=== PATIENT | male | born 1945 | race Two or more races ===

== ENCOUNTER 2017-04-10 19:29 | Inpatient (IN) | payer MEDICARE, MEDICAID ==
[~2017-04-10] VITALS: Ht 175.3 cm; Wt 72.1 kg
[2017-04-10] MEDS ORDERED: ONDANSETRON HCL/PF 4 MG/2 ML VIAL ONE ×2 (20:19→21:58)
[2017-04-10] MEDS ORDERED: MORPHINE SULFATE INJ 4 MG/ML DISP.SYRIN ONE ×2 (20:20→21:58)
[2017-04-10] MEDS ORDERED: ONDANSETRON HCL/PF - ER 4 MG/2 ML VIAL IV ONE ×2 (20:30→22:00)
[2017-04-10] MEDS ORDERED: MORPHINE SULFATE INJ 2 MG/ML DISP.SYRIN IV ONE ×2 (20:30→22:00)
--- NOTE | 2017-04-10 20:41 | NUR ---
PT TRANSPORTED TO RADIOLOGY FOR CT LUMBAR SPINE.
[2017-04-10 21:24] LABS: APPEARANCE,URINE Slightly Cloudy (CLEAR); BILIRUBIN,URINE Negative (NEGATIVE); BLOOD, URINE Negative Ery/uL (NEGATIVE); COLOR,URINE Dark (YELLOW); KETONES,URINE Negative (NEGATIVE); LEUKOCYTE ESTERASE ,URINE Trace (NEGATIVE); NITRITE, URINE Negative (NEGATIVE); PH,URINE 5.5 (5.0-8.0); PROTEIN,URINE 30 mg/dl (NEGATIVE); UGLUCOSE Negative (NEGATIVE); UROBILINOGEN,URINE 0.2 EU/dL (0.2)
[2017-04-10 21:35] LABS: BACTERIA,URINE Few /HPF (None Seen); RBC,URINE 0-2 /HPF (0-2); SQUAMOUS EPITHELIAL CELL,UR Moderate /HPF (None Seen); URINE AMORPHOUS URATE Few /HPF (None Seen)
[2017-04-10 21:36] LABS: MUCUS,URINE Moderate /LPF (None Seen)
--- NOTE | 2017-04-10 21:41 | NUR ---
ER MD AT BEDSIDE TALKING TO PT REGARDING CT RESULT. PENDING DISPOSITION.
--- NOTE | 2017-04-10 21:50 | NUR ---
OS SAT 88% ON 4L/NC ER MADE UGARTE WITH ORDERS RECEIVED. RT PAGED FOR HHN TX.
--- NOTE | 2017-04-10 21:55 | NUR ---
NOTED PT O2 SAT 86-88%, PT APPEARS ASYMPTOMATIC, PT SCREAMING DEMANDING FOR ORANGE JUICE AND REQUESTING TO BE WHEELED OUT TO SMOKE A CIGARETTE. ER MD AT BEDSIDE TALKING TO PT. PT DOES NOT APPEAR SOB, PT ABLE TO SPEAK IN FULL SENTENCES WITHOUT DIFFICULTY. LUNG SOUNDS DEMINISHED BILATERALLY ON AUSCULTATION.
[2017-04-10] MEDS ORDERED: IPRATROPIUM NEB FS 0.5 MG/2.5 ML AMPUL.NEB NEB ONE ×2 (22:00→23:00)
[2017-04-10] MEDS ORDERED: ALBUTEROL FS 2.5 MG/0.5 ML VIAL.NEB NEB ONE (22:00)
[2017-04-10] MEDS ORDERED: ALBUTEROL FS 2.5 MG/0.5 ML VIAL.NEB ONE ×2 (22:03→22:47)
[2017-04-10] MEDS ORDERED: IPRATROPIUM NEB FS 0.5 MG/2.5 ML AMPUL.NEB ONE ×2 (22:04→22:47)
--- NOTE | 2017-04-10 22:29 | NUR ---
ER MD COLBERT AT [facility] TO RE-EVAL PT.
--- NOTE | 2017-04-10 22:35 | NUR ---
CALLED [facility] FOR TRANSPORT ETA OF 1 HR WAS GIVEN.
[2017-04-10] MEDS ORDERED: ALBUTEROL FS 2.5 MG/3 ML VIAL.NEB NEB ONE (23:00)
--- NOTE | 2017-04-10 23:21 | NUR ---
CALLED [facility] TO CANCEL TRANSPORT, SPOKE WITH LIN.
--- NOTE | 2017-04-10 23:21 | NUR ---
PT O2 SAT REMAINS 86% ON 4L/NC AFTER 2 HHN TX. ER MADE AWARE WITH ORDERS RECEIVED. WILL CARRY OUT ORDERS.
[2017-04-10] MEDS ORDERED: PIPERACILLIN /TAZOBACTAM 3.375 G in IV D5W 50 ML IV ONE (23:30)
[2017-04-10] MEDS ORDERED: DEXAMETHASONE SOD PHOSPHATE 4 MG/ML VIAL IV ONE (23:30)
[2017-04-10] MEDS ORDERED: DEXAMETHASONE SOD PHOSPHATE 10 MG/ML VIAL ONE (23:34)
--- NOTE | 2017-04-10 23:46 | NUR ---
ER MD SPOKE TO TIME STAN DNP REGARDING PT ADMISSION.
[2017-04-11] VITALS (38 sets, daily range): BP systolic 86–130; BP diastolic 39–84
[2017-04-11 00:02] LABS: CALCIUM, SERUM 8.3 mg/dL (8.5-10.1); CARBON DIOXIDE 38 mmol/L (21-32); CHLORIDE 102 mmol/L (98-107); CREATININE 1.1 mg/dL (0.6-1.3); GLUCOSE 163 mg/dL (74-106); POTASSIUM 5.3 mmol/L (3.5-5.1); SODIUM SERUM 142 mmol/L (136-145); UREA NITROGEN, BLOOD 28 mg/dL (7-18)
--- NOTE | 2017-04-11 00:12 | NUR ---
ASSIGNED TELE BED 324-2
--- NOTE | 2017-04-11 00:29 | NUR ---
PT ASLEEP, NO ACUTE DISTRESS NOTED, RESP EVEN AND UNLABORED. CALL LIGHT WITHIN REACH. WILL CONTINUE TO MONITOR PT CLOSELY.
[2017-04-11 00:34] LABS: BASOPHILS # (AUTO) 0.1 /CMM (0.0-0.2); BASOPHILS % (AUTO) 0.3 % (0.0-2.0); EOSINOPHILS # (AUTO) 0.1 /CMM (0.0-0.7); EOSINOPHILS % (AUTO) 0.4 % (0.0-6.0); HEMATOCRIT 52 % (39-51); HEMOGLOBIN 16.5 g/dL (13.5-17.5); LYMPHOCYTES # (AUTO) 3.3 /CMM (0.8-4.8); LYMPHOCYTES % (AUTO) 15.1 % (20.0-44.0); MEAN CORPUSCULAR HEMOGLOBIN 32 PG (26.0-33.0); MEAN CORPUSCULAR HGB CONC 32 g/dl (31.0-36.0); MEAN CORPUSCULAR VOLUME 99 fL (80-96); MONOCYTES # (AUTO) 1.8 /CMM (0.1-1.30); MONOCYTES % (AUTO) 8.3 % (2.0-12.0); NEUTROPHILS # (AUTO) 16.4 /CMM (1.8-8.9); NEUTROPHILS % (AUTO) 75.9 % (43.0-81.0); PLATELET COUNT (AUTO) 184 /CMM (150-450); RED BLOOD CELL COUNT(AUTO) 5.25 MIL/uL (4.5-6.0); WHITE BLOOD COUNT (AUTO) 21.7 K/uL (4.3-11.0)
--- NOTE | 2017-04-11 01:39 | NUR ---
PT TRANSPORTED TO RADIOLOGY FOR CT PULMONARY ANGIOGRAM.
[2017-04-11] MEDS ORDERED: IOHEXOL-350 100 ML VIAL IV ONE (01:51)
[2017-04-11] MEDS ORDERED: IV NS 0.9% 250 ML IV ONE (01:52)
--- NOTE | 2017-04-11 02:51 | NUR ---
ER SPOKE TO NEMO PIERCE DNP REGARDING PT ADMISSION.
--- NOTE | 2017-04-11 02:53 | NUR ---
RECEIVED REPORT FROM ER REGARDING PENDING ADMISSION, AWAITING ARRIVAL IN UNIT
--- NOTE | 2017-04-11 03:00 | NUR ---
REPORT CALLED TO PROTECTION ENGINEERRANJITH GARCIA. WILL TRANSPORT PT VIA ACLS PROTOCOL.
[2017-04-11] MEDS ORDERED: IV NS 0.9% 1,000 ML IV PRN ×2 (03:04→06:15)
[2017-04-11 03:17] LABS: BAND % (MANUAL) 1 % (0.0-5.0); EOSINOPHILS % (MANUAL) 2 % (0-4); LYMPHOCYTES % (MANUAL) 20 % (16-48); MONOCYTES % (MANUAL) 9 % (0-11.0); NEUTROPHILS % (MANUAL) 68 (42-76)
--- NOTE | 2017-04-11 03:21 | NUR ---
RT AT [facility] PT ON BIPAP 15/5, RATE-14, FIO2-100%.
[2017-04-11] MEDS ORDERED: ENOXAPARIN SODIUM 40 MG/0.4 ML DISP.SYRIN SQ SCH ×2 (03:30→09:00)
[2017-04-11] MEDS ORDERED: AZITHROMYCIN 250 MG TABLET PO ONE ×2 (03:30→08:00)
[2017-04-11] MEDS ORDERED: IPRATROPIUM NEB FS 0.5 MG/2.5 ML AMPUL.NEB NEB SCH (03:30)
[2017-04-11] MEDS ORDERED: ALBUTEROL FS 2.5 MG/0.5 ML VIAL.NEB NEB SCH (03:30)
[2017-04-11] MEDS ORDERED: MORPHINE SULFATE INJ 2 MG/ML DISP.SYRIN IV PRN ×2 (03:30→06:15)
[2017-04-11] MEDS ORDERED: CEFTRIAXONE 1 G in IV D5W 50 ML IV SCH ×2 (03:30→09:00)
[2017-04-11] MEDS ORDERED: ONDANSETRON HCL/PF 4 MG/2 ML VIAL IVP PRN ×2 (03:30→06:15)
[2017-04-11] MEDS ORDERED: AZITHROMYCIN 250 MG TABLET PO SCH (03:30)
[2017-04-11] MEDS ORDERED: ALBUTEROL FS 2.5 MG/3 ML VIAL.NEB NEB SCH (03:30)
[2017-04-11] MEDS ORDERED: Z GUARD REMEDY 2 OZ OINT TP PRN ×2 (03:30→06:15)
[2017-04-11] MEDS ORDERED: ZOLPIDEM TARTRATE 5 MG TABLET PO PRN ×2 (03:30→06:15)
[2017-04-11] MEDS ORDERED: ACETAMINOPHEN 325 MG TABLET PO PRN (03:30)
--- NOTE | 2017-04-11 03:37 | NUR ---
BIPAP SETTINGS CHANGED TO 25/5, RATE-14, FIO2-50% BY RT BURAK PER ER MD ORDER.
--- NOTE | 2017-04-11 03:37 | NUR ---
Nithin ordoñez in EDM - 04/11/17 at 0338 by NEGRITA BIPAP SETTINGS CHANGED TO 25/5, RATE-14, FIO2-50%.
[2017-04-11 03:54] LABS: ABG BASE EXCESS 4.4 mmol/L; ABG OXYGEN SATURATION 95.3 % (92.0-98.5); ABG PH 7.043 (7.350-7.450); ABG PO2 100.2 mmHg (75.0-100.0); AaDO2 454.8 mmHg; COHb 5.7 % (0.5-1.5); MetHb 0.5 % (0.0-1.5); O2Hb 89.4 % (94.0-97.0); PEEP,BG 5 cm H2O; SITE, ABG Right Radial; VENT MODE, BG S/T 14 15/5 100%
--- NOTE | 2017-04-11 04:10 | NUR ---
SUZANNE ERNANDEZ AT BEDSIDE TO RE-EVAL PT. PT TOLERATING CURRENT BIPAP SETTINGS AT THIS TIME.
[2017-04-11 04:58] LABS: ABG BASE EXCESS 2.3 mmol/L; ABG OXYGEN SATURATION 90.7 % (92.0-98.5); ABG PCO2 118.6 mmHg (35.0-45.0); ABG PO2 72.2 mmHg (75.0-100.0); AaDO2 150.9 mmHg; COHb 5.3 % (0.5-1.5); MetHb 0.4 % (0.0-1.5); O2Hb 85.5 % (94.0-97.0); PEEP,BG 5 cm H2O; SITE, ABG Right Brachial; VENT MODE, BG S/T 14 25/5 50%
--- NOTE | 2017-04-11 05:01 | NUR ---
REPEAT VBG RESULT RECEIVED BY SUZANNE ERNANDEZ.
--- NOTE | 2017-04-11 05:07 | NUR ---
ER MD ORDER TO PREP PT FOR INTUBATION. RT AT [facility] FOR INTUBATION.
--- NOTE | 2017-04-11 05:13 | NUR ---
ER MD CANCEL INTUBATION. PT BECAME RESPONSIVE, PT REMAINS ON BIPAP AT THIS TIME.
--- NOTE | 2017-04-11 05:15 | NUR ---
ER SPOKE TO NEMO PIERCE DNP REGARDING PT ADMISSION.
--- NOTE | 2017-04-11 05:24 | NUR ---
REPORT CALLED TO WATER POLLUTION CONTROL INSPECTORRANJITH GOMEZ. WILL TRANSPORT PT VIA ACLS PROTOCOL.
--- NOTE | 2017-04-11 06:49 | NUR ---
MOTOR COACH BUS DRIVER. ADMISSION. RECEIVED THE PT FROM ER VIA PositiveID. PT AWAKE, ALERT. FOLLOW COMMANDS. OIL RIG ROUGHNECK SHOWING NSR. IV RT AND LT HAND 18G. IVF NS 75ML/H. BIPAP ON SETTINGS 25/5,RATE 14,FIO2 50%. SAT 97%.OIL RIG ROUGHNECK SHOWING S TACH. PT IS LETHARGIC. HOB ELEVATED, THEODORE GROIN RASHES THEODORE LOWER EXTREMITY REDNESS. WILL CONTINUE TO MONITOR VITALS.
[2017-04-11] MEDS ORDERED: PANTOPRAZOLE 40 MG TABLET.DR PO SCH ×2 (07:30)
[2017-04-11] MEDS: IPRATROPIUM NEB FS 0.5 MG/2.5 ML AMPUL.NEB NEB SCH ×5 (07:35→23:31)
[2017-04-11] MEDS: ALBUTEROL FS 2.5 MG/0.5 ML VIAL.NEB NEB SCH ×5 (07:35→23:31)
--- NOTE | 2017-04-11 07:41 | NUR ---
INITIAL MATHEMATICS PROFESSOR NOTE RCVD PT ON BIPAP TOLERATING WELL, AROUSED TO PAINFUL STIMULI, APPEARS LETHARGIC. SR ON TELE. VITAL SIGNS STABLE. IV SITES C/D/I/PATENT. NO S/O INFILTRATION/PHLEBITIS OBSERVED UPON FLUSHING. IVF INFUSING. WILL CONTINUE TO MONITOR FOR SAFETY AND COMFORT. CALL LIGHT WITHIN REACH. BED IN LOW AND LOCKED POSITION.
[2017-04-11] MEDS: methylPREDNISolone SOD SUCC 125 MG/2ML VIAL IV SCH ×3 (08:26→16:52)
[2017-04-11] MEDS ORDERED: methylPREDNISolone SOD SUCC 125 MG/2ML VIAL IV SCH (09:00)
--- NOTE | 2017-04-11 09:07 | NUR ---
TOBACCO PRIMER MACHINE OPERATOR NOTE PT BECAME COMBATIVE, RESTLESS, ATTEMPTING TO GET OUT OF BED. PT ALERT TO NAME, VERY CONFUSED, UNABLE TO RE-ORIENT. NOT FOLLOWING INSTRUCTIONS/COMMANDS. BILATERAL SOFT WRIST RESTRAINTS ORDERED. DR. ABREU AT BEDSIDE. PT CONTINUES TO BE RESTLESS. PT TO BE INTUBATED. WILL F/U.
[2017-04-11 09:46] LABS: BASOPHILS % (AUTO) 0.1 % (0.0-2.0); HEMATOCRIT 51 % (39-51); HEMOGLOBIN 16.1 g/dL (13.5-17.5); LYMPHOCYTES % (AUTO) 4.2 % (20.0-44.0); MEAN CORPUSCULAR HEMOGLOBIN 31 PG (26.0-33.0); MEAN CORPUSCULAR HGB CONC 32 g/dl (31.0-36.0); MEAN CORPUSCULAR VOLUME 100 fL (80-96); MONOCYTES # (AUTO) 1.1 /CMM (0.1-1.30); MONOCYTES % (AUTO) 4.5 % (2.0-12.0); NEUTROPHILS # (AUTO) 22.1 /CMM (1.8-8.9); NEUTROPHILS % (AUTO) 91.2 % (43.0-81.0); PLATELET COUNT (AUTO) 170 /CMM (150-450); RDW COEFFICIENT OF VARIATION 20.1 (11.5-15.0); RED BLOOD CELL COUNT(AUTO) 5.13 MIL/uL (4.5-6.0); WHITE BLOOD COUNT (AUTO) 24.3 K/uL (4.3-11.0)
[2017-04-11 10:00] LABS: CALCIUM, SERUM 8.6 mg/dL (8.5-10.1); CARBON DIOXIDE 37 mmol/L (21-32); CHLORIDE 102 mmol/L (98-107); CREATININE 1.4 mg/dL (0.6-1.3); GLUCOSE 171 mg/dL (74-106); MAGNESIUM 2.4 mg/dL (1.8-2.4); PHOSPHORUS 7.2 mg/dL (2.5-4.9); POTASSIUM 5.9 mmol/L (3.5-5.1); SODIUM SERUM 140 mmol/L (136-145); UREA NITROGEN, BLOOD 36 mg/dL (7-18)
[2017-04-11 10:32] LABS: ABG BASE EXCESS 2.3 mmol/L; ABG OXYGEN SATURATION 98.1 % (92.0-98.5); ABG PCO2 53.5 mmHg (35.0-45.0); ABG PH 7.354 (7.350-7.450); ABG PO2 130.8 mmHg (75.0-100.0); AaDO2 528.7 mmHg; COHb 2.8 % (0.5-1.5); MetHb 0.7 % (0.0-1.5); O2Hb 94.7 % (94.0-97.0); PEEP,BG 5 cm H2O; SITE, ABG Right Radial; VT, ABG 550 mL
[2017-04-11] MEDS ORDERED: SUCCINYLCHOLINE CHLORIDE 20 MG/ML VIAL IV ONE (11:01)
[2017-04-11] MEDS ORDERED: ETOMIDATE 2 MG/ML VIAL IV ONE (11:01)
[2017-04-11] MEDS ORDERED: FUROSEMIDE 40 MG/4 ML VIAL IV SCH (11:30)
[2017-04-11] MEDS ORDERED: HEPARIN SODIUM, PORCINE 5000 UNITS/1 ML VIAL SQ SCH (12:00)
[2017-04-11] MEDS ORDERED: SODIUM POLYSTYRENE SULFONATE 15 G/60 ML BOTTLE PO ONE (12:00)
[2017-04-11] MEDS ORDERED: BUMETANIDE INJ 8 MG in IV D5W 48 ML IV ONE (12:00)
--- NOTE | 2017-04-11 12:05 | NUR ---
DRY MIXER NOTE PT'S FRIEND CAME TO VISIT, STATES THAT PT HAS NO FAMILY AND HE IS THE ONLY FRIEND THE PT HAS. TORIN RING SPOKE WITH PT'S FRIEND, LIMITED INFORMATION SHARED WITH FRIEND.
[2017-04-11] MEDS: PROPOFOL 100 ML IV PRN ×4 (12:06→22:26)
[2017-04-11 14:35] LABS: APPEARANCE,URINE CLOUDY (CLEAR); BILIRUBIN,URINE NEGATIVE (NEGATIVE); BLOOD, URINE TRACE-INTA Ery/uL (NEGATIVE); COLOR,URINE YELLOW (YELLOW); KETONES,URINE NEGATIVE (NEGATIVE); LEUKOCYTE ESTERASE ,URINE NEGATIVE (NEGATIVE); NITRITE, URINE NEGATIVE (NEGATIVE); PH,URINE 5.5 (5.0-8.0); PROTEIN,URINE TRACE mg/dl (NEGATIVE); UGLUCOSE NEGATIVE (NEGATIVE); UROBILINOGEN,URINE 0.2 EU/dL (0.2)
[2017-04-11 14:54] LABS: CREATININE, URINE 144.1 MG/DL (30.0-125.0); URINE TOTAL PROTEIN 56.9 mg/dL (0-11.9)
[2017-04-11 14:57] LABS: BACTERIA,URINE None seen /HPF (None Seen); RBC,URINE 0-2 /HPF (0-2); SQUAMOUS EPITHELIAL CELL,UR Rare /HPF (None Seen); URINE AMORPHOUS URATE Many /HPF (None Seen); WBC,URINE 0-2 /HPF (0-3)
[2017-04-11] MEDS ORDERED: FEE PK DOSING 1 MIN EA MC ONE (15:38)
[2017-04-11 15:56] LABS: EOSINOPHIL,URINE None Seen
[2017-04-11] MEDS ORDERED: VANCOMYCIN 1 GM in IV D5W 250 ML IV SCH (16:00)
[2017-04-11] MEDS: VANCOMYCIN 1 GM in IV D5W 250 ML IV SCH (16:50)
[2017-04-11] MEDS: PIPERACILLIN /TAZOBACTAM 3.375 G in IV D5W 50 ML IV SCH (18:36)
--- NOTE | 2017-04-11 18:49 | NUR ---
COURIER NOTE PT REMAINS STABLE, INTUBATED, SEDATED, SHOWING NO S/O DISTRESS/PAIN. TOLERATING ORDERED VENT SETTINGS. OG TUBE IN PLACE, MUELLER DRAINING PALE, YELLOW URINE. IV SITES C/D/I/PATENT. NO S/O INFILTRATION/PHLEBITIS OBSERVED. PT'S CARE WILL BE ENDORSED TO AUTOMATIC PATTERN EDGER RN FOR CONTINUITY OF CARE.
--- NOTE | 2017-04-11 20:00 | NUR ---
QUARRYING MANAGER NOTES RECEIVED PT IN BED, SEDATED. TELE READS SR AT THIS TIME WITH EPISODES OF 2ND AND 3RD DEGREE HEART BLOCK. ON VENT VIA 7.5 ETT, 25 CM AT LIP, AC 14, TV 500, FIO2 80%, PEEP 5, TINA WELL. MUELLER CATH IN PLACE, DRAINING WELL. TOMMY PICC AND RW 20G IV, RUNNING DIPRIVAN AT 50 MCG/KG/MIN AND BUMEX. NGT IN PLACE, CLAMPED. NO S/S OF ACUTE DISTRESS. PT TURNED AND REPOSITIONED. HOB ELEVATED, SIDE RAILS X3. BILATERAL RESTRAINTS IN PLACE FOR PT SAFETY.
[2017-04-11] MEDS: HEPARIN SODIUM, PORCINE 5000 UNITS/1 ML VIAL SQ SCH (21:03)
[2017-04-12] VITALS (56 sets, daily range): BP systolic 93–141; BP diastolic 43–95
[2017-04-12] MEDS: PIPERACILLIN /TAZOBACTAM 3.375 G in IV D5W 50 ML IV SCH ×4 (00:55→17:50)
[2017-04-12] MEDS: PROPOFOL 100 ML IV PRN ×6 (02:04→22:29)
[2017-04-12] MEDS: ALBUTEROL FS 2.5 MG/0.5 ML VIAL.NEB NEB SCH ×6 (02:59→22:49)
[2017-04-12] MEDS: IPRATROPIUM NEB FS 0.5 MG/2.5 ML AMPUL.NEB NEB SCH ×6 (03:00→22:49)
[2017-04-12] MEDS: VANCOMYCIN 1 GM in IV D5W 250 ML IV SCH ×2 (04:05→16:32)
[2017-04-12 04:58] LABS: HEMATOCRIT 45 % (39-51); HEMOGLOBIN 14.5 g/dL (13.5-17.5); LYMPHOCYTES # (AUTO) 1.6 /CMM (0.8-4.8); LYMPHOCYTES % (AUTO) 6.7 % (20.0-44.0); MEAN CORPUSCULAR HEMOGLOBIN 31 PG (26.0-33.0); MEAN CORPUSCULAR HGB CONC 32 g/dl (31.0-36.0); MEAN CORPUSCULAR VOLUME 97 fL (80-96); MONOCYTES # (AUTO) 1.2 /CMM (0.1-1.30); MONOCYTES % (AUTO) 5.1 % (2.0-12.0); NEUTROPHILS # (AUTO) 21.2 /CMM (1.8-8.9); NEUTROPHILS % (AUTO) 88.2 % (43.0-81.0); PLATELET COUNT (AUTO) 187 /CMM (150-450); RED BLOOD CELL COUNT(AUTO) 4.62 MIL/uL (4.5-6.0); WHITE BLOOD COUNT (AUTO) 24.1 K/uL (4.3-11.0)
[2017-04-12 05:13] LABS: ALANINE AMINOTRANSFERASE 36 U/L (12-78); ALBUMIN 2.5 g/dL (3.4-5.0); ALKALINE PHOSPHATASE 100 U/L (46-116); ASPARTATE AMINOTRANSFERASE 15 U/L (15-37); BILIRUBIN,TOTAL 0.5 mg/dL (0.2-1.0); CALCIUM, SERUM 7.5 mg/dL (8.5-10.1); CHLORIDE 102 mmol/L (98-107); CREATININE 1.3 mg/dL (0.6-1.3); GLUCOSE 153 mg/dL (74-106); MAGNESIUM 1.9 mg/dL (1.8-2.4); PHOSPHORUS 4.8 mg/dL (2.5-4.9); POTASSIUM 3.2 mmol/L (3.5-5.1); SODIUM SERUM 148 mmol/L (136-145); TOTAL PROTEIN, SERUM 5.8 g/dL (6.4-8.2); UREA NITROGEN, BLOOD 33 mg/dL (7-18)
[2017-04-12 05:24] LABS: CARBON DIOXIDE 42 mmol/L (21-32)
[2017-04-12 05:27] LABS: CHOLESTEROL 120 mg/dL (<200); CREATINE KINASE, TOTAL 31 U/L (39-308); HDL CHOLESTEROL 30 mg/dL (40-60); LDL 79 mg/dL (0-99); THYROID STIMULATING HORMONE 0.434 uIU/mL (0.358-3.74); TRIGLYCERIDES 83 mg/dL (30-150)
--- NOTE | 2017-04-12 07:35 | NUR ---
ADVERTISING EDITOR RECEIVED PATIENT FROM THE PREVIOUS SHIFT. PATIENT IS IN BED. SEDATED ON DIPRIVAN 50 MCG/KG/MIN. ORALLY INTUBATED. VENT SETTINGS REVIEWED AND VERIFIED. STABLE VITAL SINGS. SINUS RHYTHM ON MONITOR. AFEBRILE. MUELLER DRAINING URINE TO GRAVITY. TURNED AND REPOSITIONED FOR COMFORT AND WOUND PREVENTION. WILL CONTINUE TO MONITOR AND PROVIDE CARE.
[2017-04-12 07:47] LABS: BAND % (MANUAL) 1 % (0.0-5.0); LYMPHOCYTES % (MANUAL) 7 % (16-48); MONOCYTES % (MANUAL) 5 % (0-11.0); NEUTROPHILS % (MANUAL) 87 (42-76)
[2017-04-12 07:56] LABS: ABG BASE EXCESS 11.5 mmol/L; ABG OXYGEN SATURATION 91.7 % (92.0-98.5); ABG PCO2 64.3 mmHg (35.0-45.0); ABG PH 7.403 (7.350-7.450); AaDO2 218.2 mmHg; COHb 0.8 % (0.5-1.5); MetHb 0.7 % (0.0-1.5); O2Hb 90.3 % (94.0-97.0); SITE, ABG Right Radial
[2017-04-12] MEDS ORDERED: DEXTROSE 50%-WATER 50 ML DISP.SYRIN IV PRN (08:00)
[2017-04-12] MEDS: POTASSIUM CHLORIDE 20 MEQ POWDER PACKET NG SCH ×3 (08:30→09:30)
--- NOTE | 2017-04-12 08:43 | NUR ---
RT PATIENT REC'D ORALLY INTUBATED ON [facility] VENT WITH SETTINGS SET BY . VENT ALARMS CHECKED + AUDIBLE. VENT PLUGGED INTO RED OUTLET. ETT IN GOOD POSITION ACCORDING TO CHEST X-RAY. PATIENT SUCTIONED WITH MOD AMT THIN SECRETIONS. AMBU BAG AT [facility]. B/S COARSE. CONT CURRENT PLAN OF RESP CARE. Addendum: 04/12/17 at 1132 by TOLU ISAAC RT Amended: Links added.
[2017-04-12] MEDS: methylPREDNISolone SOD SUCC 125 MG/2ML VIAL IV SCH ×3 (08:57→16:32)
[2017-04-12] MEDS: AZITHROMYCIN 250 MG TABLET PO SCH (08:58)
[2017-04-12] MEDS: FAMOTIDINE/PF INJ 20 MG/2 ML VIAL IV SCH ×2 (08:58→21:10)
[2017-04-12] MEDS: HEPARIN SODIUM, PORCINE 5000 UNITS/1 ML VIAL SQ SCH ×2 (08:59→21:12)
--- NOTE | 2017-04-12 09:35 | NUR ---
ROLL FORMING SUPERVISOR DURING 20 MINUTE SEDATION VACATION, RN TURNED OFF THE PROPOFOL GTT. PATIENT NOTED TO BE TACHYPNEIC AND ATTEMPTING TO OPEN EYES. NO PURPOSEFUL MOVEMENT. RN RESEDATED THE PATIENT DUE TO HIGH RISK FOR RESPIRATORY COMPROMISE. PATIENT NOTED TO TAKE IN LOW TIDAL VOLUMES. WILL CONTINUE TO MONITOR.
[2017-04-12] MEDS: Z GUARD REMEDY 2 OZ OINT TP SCH (11:14)
[2017-04-12] MEDS ORDERED: POTASSIUM CHLORIDE 20 MEQ POWDER PACKET GT ONE ×2 (11:30→12:00)
[2017-04-12] MEDS: BLOOD SUGAR DIAGNOSTIC 1 EACH STRIP IN SCH ×2 (11:54→17:40)
[2017-04-12] MEDS: FUROSEMIDE 40 MG/4 ML VIAL IV SCH ×3 (11:54→21:10)
--- NOTE | 2017-04-12 12:13 | NUR ---
WOUND CARE CONSULT: PT PRESENTS WITH SKIN TEAR TO LEFT LOWER LEG, PRESENT ON ADMISSION. RESOLVING EDEMA NOTED TO LOWER LEGS. RECOMMENDATIONS MADE FOR WOUND CARE AND SKIN PROTECTION. DISCUSSED WITH NURSING STAFF. WILL SEE PRN. PT TO BE PLACED ON FIRST STEP MATTRESS. ALL SKIN PROTECTION MEASURES IN PLACE. MD IN AGREEMENT WITH PLAN OF CARE. Addendum: 04/12/17 at 1214 by MEHRDAD LAROSE WNDNU Amended: Links added.
[2017-04-12] MEDS: HYDROGEL DRESSING 90 GM TUBE TP SCH (13:44)
[2017-04-12] MEDS: INSULIN REGULAR, HUMAN 100 UNIT/ML 3 ML VIAL SQ PRN (17:43)
[2017-04-12] MEDS ORDERED: TUBERCULIN,PURIF.PROT.DERIV. 5 TU/0.1 ML VIAL ID ONE (18:00)
--- NOTE | 2017-04-12 19:30 | NUR ---
PATIENT OFFICE REP INITIAL NOTE RECEIVED REPORT FROM TYRESE. PT IN BED, INTUBATED AND SEATED. LUNG SOUNDS DIMINISHED. BOWEL SOUNDS PRESENT. MUELLER PATENT AND INTACT. PULSES PRESENT. IV PATENT AND INTACT. REPOSITIONED FOR COMFORT. BED IN LOW LOCKED POSITION. WILL CONTINUE TO MONITOR.
--- NOTE | 2017-04-12 20:40 | NUR ---
PT RECEIVED INTUBATED ON VENT WITH 7.5 ETT SECURED AT 25CM AT THE LIP. PT TOLERATING VENT SETTINGS. SX'D FOR MOD AMT OF THICK YELLOW SECRETIONS. VENT ALARMS SET AND AUDIBLE. AMBU BAG AT BEDSIDE. VENT PLUGGED INTO RED OUTLET. WILL CONTINUE TO MONITOR. Addendum: 04/12/17 at 2041 by LAURIE DENIS RT Amended: Links added.
[2017-04-13] VITALS (55 sets, daily range): BP systolic 98–144; BP diastolic 39–100
[2017-04-13] MEDS: PIPERACILLIN /TAZOBACTAM 3.375 G in IV D5W 50 ML IV SCH ×4 (00:45→16:53)
[2017-04-13] MEDS: BLOOD SUGAR DIAGNOSTIC 1 EACH STRIP IN SCH ×5 (00:46→23:26)
[2017-04-13] MEDS: INSULIN REGULAR, HUMAN 100 UNIT/ML 3 ML VIAL SQ PRN ×3 (01:02→23:27)
[2017-04-13] MEDS: PROPOFOL 100 ML IV PRN ×3 (01:25→05:41)
[2017-04-13] MEDS: ALBUTEROL FS 2.5 MG/0.5 ML VIAL.NEB NEB SCH ×6 (03:17→22:54)
[2017-04-13] MEDS: IPRATROPIUM NEB FS 0.5 MG/2.5 ML AMPUL.NEB NEB SCH ×6 (03:17→22:54)
[2017-04-13] MEDS: VANCOMYCIN 1 GM in IV D5W 250 ML IV SCH ×2 (03:30→16:53)
[2017-04-13 04:38] LABS: CALCIUM, SERUM 7.6 mg/dL (8.5-10.1); CHLORIDE 99 mmol/L (98-107); CREATININE 1.1 mg/dL (0.6-1.3); GLUCOSE 169 mg/dL (74-106); SODIUM SERUM 147 mmol/L (136-145); UREA NITROGEN, BLOOD 31 mg/dL (7-18)
[2017-04-13 04:57] LABS: CARBON DIOXIDE 48 mmol/L (21-32); POTASSIUM 2.4 mmol/L (3.5-5.1)
[2017-04-13] MEDS: IV NS 0.9% 500 ML BAG IV PRN (05:40)
[2017-04-13] MEDS: IV NS 0.9% 250 ML IV PRN (05:41)
--- NOTE | 2017-04-13 05:48 | NUR ---
INGOT STRIPPER DR ROJAS CALLED WITH CRITICAL VALUES. NEW ORDERS RECEIVED, WILL CARRY OUT.
[2017-04-13] MEDS ORDERED: POTASSIUM CHLORIDE 20 MEQ POWDER PACKET GT ONE (06:00)
[2017-04-13] MEDS ORDERED: POTASSIUM CHLORIDE 20 MEQ POWDER PACKET ONE (06:08)
[2017-04-13] MEDS: POTASSIUM CHLORIDE 20 MEQ POWDER PACKET NG SCH ×2 (06:18→06:49)
--- NOTE | 2017-04-13 07:37 | NUR ---
ASE MASTER MECHANIC RECEIVED PATIENT FROM THE PREVIOUS SHIFT. PATIENT IS IN BED. RESTING COMFORTABLY. NO ACUTE DISTRESS NOTED. AFEBRILE. URINE DRAINING TO GRAVITY. TURNED AND REPOSITIONED FOR COMFORT AND WOUND PREVENTION. WILL CONTINUE TO MONITOR AND PROVIDE CARE.
[2017-04-13] MEDS ORDERED: DC PROPOFOL WHEN EXTUBATED XX PRN ×2 (08:00→10:30)
--- NOTE | 2017-04-13 08:45 | NUR ---
RT PLACED PT ON SIMV TRIALS WITH FOLLOW SETTINGS: SIMV RR 4, VT 500, PEEP +5, PSV 12 PER MD ORDER. WILL CONTINUE TO MONITOR THE PATIENT CLOSELY FOR ANY CHANGE OF CONDITION. NO SIGNS OF DISTRESS AT THIS TIME. RN NOTIFIED AND AWARE. Addendum: 04/13/17 at 0900 by JAMES RODRIGUES RT Amended: Links added.
[2017-04-13] MEDS: methylPREDNISolone SOD SUCC 125 MG/2ML VIAL IV SCH ×3 (08:50→16:53)
[2017-04-13] MEDS: HEPARIN SODIUM, PORCINE 5000 UNITS/1 ML VIAL SQ SCH ×2 (08:50→20:19)
[2017-04-13] MEDS: AZITHROMYCIN 250 MG TABLET PO SCH (08:50)
[2017-04-13] MEDS: FAMOTIDINE/PF INJ 20 MG/2 ML VIAL IV SCH ×2 (08:50→20:19)
[2017-04-13] MEDS: Z GUARD REMEDY 2 OZ OINT TP SCH (08:51)
[2017-04-13] MEDS: HYDROGEL DRESSING 90 GM TUBE TP SCH (08:51)
[2017-04-13 08:57] LABS: EOSINOPHILS # (AUTO) 0.1 /CMM (0.0-0.7); EOSINOPHILS % (AUTO) 0.6 % (0.0-6.0); HEMATOCRIT 47 % (39-51); LYMPHOCYTES # (AUTO) 1.6 /CMM (0.8-4.8); LYMPHOCYTES % (AUTO) 7.2 % (20.0-44.0); MEAN CORPUSCULAR HEMOGLOBIN 31 PG (26.0-33.0); MEAN CORPUSCULAR HGB CONC 32 g/dl (31.0-36.0); MEAN CORPUSCULAR VOLUME 97 fL (80-96); MONOCYTES # (AUTO) 0.8 /CMM (0.1-1.30); MONOCYTES % (AUTO) 3.7 % (2.0-12.0); NEUTROPHILS # (AUTO) 19.6 /CMM (1.8-8.9); NEUTROPHILS % (AUTO) 88.5 % (43.0-81.0); PLATELET COUNT (AUTO) 203 /CMM (150-450); RDW COEFFICIENT OF VARIATION 19.8 (11.5-15.0); RED BLOOD CELL COUNT(AUTO) 4.85 MIL/uL (4.5-6.0); WHITE BLOOD COUNT (AUTO) 22.2 K/uL (4.3-11.0)
[2017-04-13] MEDS ORDERED: POTASSIUM CHLORIDE 20 MEQ POWDER PACKET NG SCH (09:30)
[2017-04-13 10:03] LABS: BAND % (MANUAL) 1 % (0.0-5.0); LYMPHOCYTES % (MANUAL) 8 % (16-48); MONOCYTES % (MANUAL) 2 % (0-11.0); NEUTROPHILS % (MANUAL) 89 (42-76)
[2017-04-13 10:16] LABS: ABG OXYGEN SATURATION 94.8 % (92.0-98.5); ABG PCO2 65.3 mmHg (35.0-45.0); ABG PH 7.437 (7.350-7.450); ABG PO2 80.7 mmHg (75.0-100.0); AaDO2 275.3 mmHg; COHb 0.8 % (0.5-1.5); MetHb 0.7 % (0.0-1.5); O2Hb 93.4 % (94.0-97.0); PEEP,BG 5 cm H2O; SITE, ABG Right Brachial; VT, ABG 500 mL
--- NOTE | 2017-04-13 10:22 | NUR ---
RT POST ABG RESULTS SHOWN TO DR. ABREU. PT EXTUBATED PER MD ORDER. RN AT BEDSIDE. PLACED PT ON 5 LPM VIA N/C. SpO2 95%, HR 94. PT IS AWAKE AND VERBALLY RESPONSIVE. WILL CONTINUE TO MONITOR FOR ANY CHANGE OF CONDITION.
[2017-04-13] MEDS: ACETYLCYSTEINE 10% SOLN 400 MG/4 ML VIAL NEB SCH ×3 (11:07→22:54)
[2017-04-13 12:14] LABS: *SPE A/G RATIO 1.1 (0.7-1.7); *SPE ALBUMIN 2.8 g/dL (2.9-4.4); *SPE ALPHA-1-GLOBULIN 0.2 g/dL (0.0-0.4); *SPE ALPHA-2-GLOBULIN 0.6 g/dL (0.4-1.0); *SPE BETA GLOBULIN 0.9 g/dL (0.7-1.3); *SPE GLOBULIN, TOTAL 2.5 g/dL (2.2-3.9); *SPE M-SPIKE Not Observed g/dL (Not Observed); *SPE PROTEIN TOTAL 5.3 g/dL (6.0-8.5); *SPEGAMMA GLOBULIN 0.8 g/dL (0.4-1.8)
--- NOTE | 2017-04-13 12:30 | NUR ---
RT PATIENT IS ALERT AND VERBALLY RESPONSIVE. ABG RESULTS POST 1 H[address] EXTUBATION SHOWN TO DR. ABREU. PLACE PT ON VENTI MASK WITH 50% FiO2 PER MD ORDER. PATIENT REFUSED MASK 3 TIMES. PT BECAME COMBATIVE AND STATES WANTING TO BE LEFT ALONE. PATIENT IS CURRENTLY ON 6LPM VIA N/C. RN AWARE AND AT BEDSIDE. NO SIGNS OF RESPIRATORY DISTRESS NOTED AT THIS TIME. WILL CONTINUE TO MONITOR THE PATIENT CLOSELY FOR ANY CHANGES.
--- NOTE | 2017-04-13 13:24 | NUR ---
PHILOSOPHY SPECIALIST PATIENT IS ALERT AND ORIENTED X 4. ABLE TO MAKE DECISIONS FOR HIMSELF. HAY FARMER AWARE OF PATIENT'S RECENT BLOOD GAS. HAY FARMER RECOMMENDED TO PLACE PATIENT ON VENTI MASK AT 50% FIO2. PATIENT REFUSED THE MASK X 3. PATIENT NOTED TO BE AGGRESSIVE AND COMBATIVE WHEN APPROACHED. PATIENT IS CURRENTLY ON 6L NC WITH HUMIDIFICATION. SATURATING BETWEEN 88% -91%. WHEAT FARMER MADE AWARE OF PATIENT'S RECENT EKG CHANGES. WHEAT FARMER MADE AWARE ABOUT PATIENT'S CURRENT NON-COMPLIANCE AND COMBATIVENESS. NO NEW ORDERS.
[2017-04-13 14:18] LABS: ABG BASE EXCESS 16.5 mmol/L; ABG OXYGEN SATURATION 82.2 % (92.0-98.5); ABG PCO2 66.8 mmHg (35.0-45.0); ABG PH 7.445 (7.350-7.450); ABG PO2 47.4 mmHg (75.0-100.0); AaDO2 190.2 mmHg; COHb 0.9 % (0.5-1.5); MetHb 0.8 % (0.0-1.5); O2Hb 80.8 % (94.0-97.0); SITE, ABG Right Brachial; VENT MODE, BG 6LPM VIA N/C
[2017-04-13] MEDS: VITAMINS A AND D 56.7 GM TUBE TP SCH (17:38)
[2017-04-13] MEDS: NYSTATIN TOP POWDER 15 GM BOTTLE TP SCH (17:38)
--- NOTE | 2017-04-13 18:22 | NUR ---
PER DIEM CLERK PATIENT IS IN BED. NOTED TO BE AGITATED AND RESTLESS. PATIENT WAS PLACED ON ACUTE MEDICAL RESTRAINTS SINCE RN WITNESSED PATIENT ATTEMPTING TO PULL THE PICC LINE AND THE MUELLER CATH. PATIENT IS NOW ON VENTI MASK AT 50% FIO22 TURNED AND REPOSITIONED FOR COMFORT AND WOUND PREVENTION. WILL CONTINUE TO MONITOR AND PROVIDE CARE.
--- NOTE | 2017-04-13 19:00 | NUR ---
PT PULLED OUT MUELLER CATHETER, PT HAS BLOODY URINE, STILL ABLE TO VOID
[2017-04-13] MEDS: CEFTRIAXONE 1 G in IV D5W 50 ML IV SCH (20:18)
[2017-04-13] MEDS ORDERED: MORPHINE SULFATE INJ 4 MG/ML DISP.SYRIN ONE (21:58)
--- NOTE | 2017-04-13 22:00 | NUR ---
SPOKE TO DR ROJAS HE SAID TO NOT REINSERT THE MUELLER BECAUSE THERE IS ALREADY TRAUMA AND TO MONITOR THE OUTPUT VIA URINAL
[2017-04-14] VITALS (43 sets, daily range): BP systolic 103–163; BP diastolic 37–100
[2017-04-14] MEDS: IPRATROPIUM NEB FS 0.5 MG/2.5 ML AMPUL.NEB NEB SCH ×5 (03:27→19:42)
[2017-04-14] MEDS: ALBUTEROL FS 2.5 MG/0.5 ML VIAL.NEB NEB SCH ×5 (03:28→19:43)
[2017-04-14 04:39] LABS: HEMATOCRIT 48 % (39-51); HEMOGLOBIN 15.4 g/dL (13.5-17.5); LYMPHOCYTES # (AUTO) 1.4 /CMM (0.8-4.8); LYMPHOCYTES % (AUTO) 6.3 % (20.0-44.0); MEAN CORPUSCULAR HEMOGLOBIN 31 PG (26.0-33.0); MEAN CORPUSCULAR HGB CONC 32 g/dl (31.0-36.0); MEAN CORPUSCULAR VOLUME 96 fL (80-96); MONOCYTES % (AUTO) 4.4 % (2.0-12.0); NEUTROPHILS # (AUTO) 20.1 /CMM (1.8-8.9); NEUTROPHILS % (AUTO) 89.3 % (43.0-81.0); PLATELET COUNT (AUTO) 191 /CMM (150-450); RDW COEFFICIENT OF VARIATION 19.7 (11.5-15.0); WHITE BLOOD COUNT (AUTO) 22.5 K/uL (4.3-11.0)
[2017-04-14 04:54] LABS: CALCIUM, SERUM 8.3 mg/dL (8.5-10.1); CHLORIDE 101 mmol/L (98-107); CREATININE 0.8 mg/dL (0.6-1.3); GLUCOSE 127 mg/dL (74-106); POTASSIUM 3.2 mmol/L (3.5-5.1); SODIUM SERUM 148 mmol/L (136-145); UREA NITROGEN, BLOOD 29 mg/dL (7-18)
[2017-04-14 06:09] LABS: LYMPHOCYTES % (MANUAL) 7 % (16-48); MONOCYTES % (MANUAL) 3 % (0-11.0); NEUTROPHILS % (MANUAL) 88 (42-76); REACTIVE LYMPHOCYTES 2 % (0-0)
[2017-04-14] MEDS: BLOOD SUGAR DIAGNOSTIC 1 EACH STRIP IN SCH (06:13)
[2017-04-14] MEDS: IV NS 0.9% 250 ML IV PRN (06:14)
[2017-04-14 06:24] LABS: CARBON DIOXIDE 48 mmol/L (21-32)
[2017-04-14] MEDS ORDERED: acetaZOLAMIDE SODIUM 500 MG/VIAL VIAL IV ONE (07:00)
[2017-04-14 07:12] LABS: ABG BASE EXCESS 19.3 mmol/L; ABG OXYGEN SATURATION 90.3 % (92.0-98.5); ABG PCO2 76.8 mmHg (35.0-45.0); ABG PH 7.421 (7.350-7.450); ABG PO2 62.5 mmHg (75.0-100.0); AaDO2 207.6 mmHg; COHb 1.1 % (0.5-1.5); MetHb 0.6 % (0.0-1.5); O2Hb 88.8 % (94.0-97.0); SITE, ABG Left Brachial; VENT MODE, BG 50% VIA VENTURI MASK
--- NOTE | 2017-04-14 07:30 | NUR ---
LABORATORY CHEMIST RECEIVED PATIENT FROM THE PREVIOUS SHIFT. PATIENT IS IN BED. RESTING COMFORTABLY. NO ACUTE DISTRESS NOTED. EVEN AND NON LABORED BREATHING PATTERN. AFEBRILE. SINUS ARRHYTHMIA NOTED. NORMAL BP. PLACED ON BIPAP BY RT. ALERT AND ORIENTED X 2-3. WILL CONTINUE TO MONITOR AND PROVIDE CARE.
[2017-04-14] MEDS: POTASSIUM CL. PREMIX PERIPHER. 50 ML IV SCH ×6 (07:42→17:06)
[2017-04-14] MEDS: ACETYLCYSTEINE 10% SOLN 400 MG/4 ML VIAL NEB SCH ×2 (07:44→15:28)
--- NOTE | 2017-04-14 08:21 | NUR ---
pt placed on bipap due to low pao2 62 and low spo2 90. b/s diminished on right lung. bipap settings bellow as order: ipap 15 epap 5 rate 10 fio2 60% Addendum: 04/14/17 at 0919 by ROHAN HARMAN RT Amended: Links added.
[2017-04-14] MEDS: HYDROGEL DRESSING 90 GM TUBE TP SCH (08:24)
[2017-04-14] MEDS: Z GUARD REMEDY 2 OZ OINT TP SCH (08:24)
[2017-04-14] MEDS: HYDROGEL DRESSING 90 GM TUBE TP PRN (08:24)
[2017-04-14] MEDS: AZITHROMYCIN 250 MG TABLET PO SCH ×2 (08:25→18:56)
[2017-04-14] MEDS: VITAMINS A AND D 56.7 GM TUBE TP SCH ×2 (08:25→17:07)
[2017-04-14] MEDS: NYSTATIN TOP POWDER 15 GM BOTTLE TP SCH ×2 (08:25→17:07)
[2017-04-14] MEDS: methylPREDNISolone SOD SUCC 125 MG/2ML VIAL IV SCH ×3 (08:27→17:10)
[2017-04-14] MEDS: FAMOTIDINE/PF INJ 20 MG/2 ML VIAL IV SCH ×2 (08:28→20:49)
[2017-04-14] MEDS: HEPARIN SODIUM, PORCINE 5000 UNITS/1 ML VIAL SQ SCH ×2 (08:29→20:50)
--- NOTE | 2017-04-14 10:18 | NUR ---
PT. PLACED BACK TO VENTURI MASK @ 50%. PT. REFUSED BIPAP. Addendum: 04/14/17 at 1018 by ROHAN HARMAN RT Amended: Links added.
--- NOTE | 2017-04-14 10:20 | NUR ---
HERPETOLOGIST PATIENT REFUSES BIPAP. PATIENT NOTED TO BE AGITATED WHEN WEARING BIPAP. PATIENT WAS PLACED BACK ON VENTI MASK AT 50%. WILL CONTINUE TO MONITOR.
[2017-04-14] MEDS ORDERED: QUETIAPINE FUMARATE 25 MG TABLET PO PRN (11:30)
[2017-04-14] MEDS: LACTOBACILLUS RHAMNOSUS GG 1 EACH CAP.SPRINK PO SCH (17:10)
--- NOTE | 2017-04-14 20:00 | NUR ---
RN NOTES RECEIVED PX AWAKE, ALERT, ORIENTED X 3, ON VENTURI MASK AT 50%, SATURATING 91-92%, SR TO ST ON MONITOR, BUT SOMETIMES SINUS ARRHYTHMIA; PX MOVES BY SELF IN BED, USES URINAL, BUT AM REPORT SAID PX SOMETIMES HAS INCONTINENCE OF URINE, DIAPER ON; NOTED PICC RT UA, DRESSING CLEAN DRY INTACT, CONNECTED TO CVP MONITOR, CALIBRATED AND ZEROED, SOMETIMES POSITIONAL SINCE PX MOVES BY SELF INDEDEPENDENTLY; EXPLAINED NEED FOR DVT PUMPS BUT PX REFUSED, HOB AT 30 ANGLE; PX DENIED PAIN, SOB, N/V; NOTED MULTIPLE BRUISES LILY ON BOTH HANDS, SEE SKIN FLOWSHEET FOR SKIN ASSESSMENT. DISCUSSED PLAN OF CARE; CALL LIGHT WITHIN REACH.
[2017-04-14] MEDS: CEFTRIAXONE 1 G in IV D5W 50 ML IV SCH (20:49)
--- NOTE | 2017-04-14 22:05 | NUR ---
RN NOTES HAD 1 SMALL BM, GREENISH FORMED, PERICARE RENDERED, REDNESS ON PERIAREA NOTED, Z GUARD GIVEN. EDUCATED ON NEED TO HAVE HOB AT 30 ANGLE.
[2017-04-14] MEDS: ACETAMINOPHEN 325 MG TABLET PO PRN (22:21)
[2017-04-15] VITALS (24 sets, daily range): BP systolic 111–157; BP diastolic 45–102
[2017-04-15] MEDS: ACETYLCYSTEINE 10% SOLN 400 MG/4 ML VIAL NEB SCH ×4 (00:04→23:13)
[2017-04-15] MEDS: IPRATROPIUM NEB FS 0.5 MG/2.5 ML AMPUL.NEB NEB SCH ×7 (00:04→23:13)
[2017-04-15] MEDS: ALBUTEROL FS 2.5 MG/0.5 ML VIAL.NEB NEB SCH ×7 (00:04→23:13)
--- NOTE | 2017-04-15 00:39 | NUR ---
RN NOTES CONDITION UNCHANGED, DENIED PAIN, SOB, N/V; HAS UNSUSTAINED EPISODES OF PAC'S, PVC'S, SINUS ARRHYTHMIA, PX DENIED CHEST PAIN, DIZZINESS, BP WNL.
[2017-04-15] MEDS: IV NS 0.9% 250 ML IV PRN ×2 (04:01→22:02)
[2017-04-15] MEDS: IV NS 0.9% 500 ML BAG IV PRN ×2 (04:02→22:02)
[2017-04-15 04:44] LABS: HEMATOCRIT 48 % (39-51); HEMOGLOBIN 15.1 g/dL (13.5-17.5); LYMPHOCYTES # (AUTO) 1.4 /CMM (0.8-4.8); LYMPHOCYTES % (AUTO) 7.5 % (20.0-44.0); MEAN CORPUSCULAR HEMOGLOBIN 31 PG (26.0-33.0); MEAN CORPUSCULAR HGB CONC 32 g/dl (31.0-36.0); MEAN CORPUSCULAR VOLUME 97 fL (80-96); MONOCYTES # (AUTO) 0.8 /CMM (0.1-1.30); MONOCYTES % (AUTO) 4.2 % (2.0-12.0); NEUTROPHILS % (AUTO) 88.3 % (43.0-81.0); PLATELET COUNT (AUTO) 183 /CMM (150-450); RDW COEFFICIENT OF VARIATION 19.3 (11.5-15.0); RED BLOOD CELL COUNT(AUTO) 4.92 MIL/uL (4.5-6.0); WHITE BLOOD COUNT (AUTO) 18.1 K/uL (4.3-11.0)
[2017-04-15 05:18] LABS: CALCIUM, SERUM 8.3 mg/dL (8.5-10.1); CHLORIDE 103 mmol/L (98-107); CREATININE 0.7 mg/dL (0.6-1.3); GLUCOSE 163 mg/dL (74-106); POTASSIUM 3.8 mmol/L (3.5-5.1); SODIUM SERUM 144 mmol/L (136-145); UREA NITROGEN, BLOOD 38 mg/dL (7-18)
[2017-04-15 05:42] LABS: CARBON DIOXIDE 40 mmol/L (21-32)
[2017-04-15 05:49] LABS: BAND % (MANUAL) 2 % (0.0-5.0); LYMPHOCYTES % (MANUAL) 4 % (16-48); MONOCYTES % (MANUAL) 2 % (0-11.0); NEUTROPHILS % (MANUAL) 92 (42-76)
--- NOTE | 2017-04-15 06:15 | NUR ---
RN NOTES BEDBATH RENDERED, HAD 1 SMALL SMEAR OF BM, PERICARE RENDERED, STILL WITH REDNESS ON PERIANAL AREA, NYSTATIN POWEDER APPLIED TO REDNESS, PROCEDURE TOLERATED, NO PRESSURE ULCER NOTED; DIAPER ON; SR ON MONITOR WITH OCC PAC'S AND PVC'S, BP WNL; PX DENIED PAIN, SOB, N/V; O2 SAT REMAINED AT 92% WITH CVP 7-10, PX SEEN BY DR. SIMMONS. CALL LIGHT WITHIN REACH.
[2017-04-15] MEDS ORDERED: BUMETANIDE INJ 8 MG in IV NS 0.9% 48 ML IV ONE (07:30)
--- NOTE | 2017-04-15 07:37 | NUR ---
INITIAL OUTSIDE PLANT TECHNICIAN NOTE RCVD PT AWAKE AND ALERT, SHOWING NO S/O DISTRESS OR C/O PAIN. SR ON TELE W/OCCASIONAL PACs/PVCs. ON VENTURI MASK TOLERATING WELL. VOIDING TO URINAL. TOMMY PICC C/D/I/PATENT. NO S/O INFILTRATION/PHLEBITIS OBSERVED AT THIS TIME. IVF INFUSING TKO. WILL CONTINUE TO MONITORING PT FOR SAFETY AND COMFORT. CALL LIGHT WITHIN REACH. BED IN LOW AND LOCKED POSITION.
[2017-04-15] MEDS: methylPREDNISolone SOD SUCC 125 MG/2ML VIAL IV SCH ×2 (08:44→16:50)
[2017-04-15] MEDS: AZITHROMYCIN 250 MG TABLET PO SCH (08:44)
[2017-04-15] MEDS: FAMOTIDINE/PF INJ 20 MG/2 ML VIAL IV SCH ×2 (08:44→22:01)
[2017-04-15] MEDS: LACTOBACILLUS RHAMNOSUS GG 1 EACH CAP.SPRINK PO SCH ×2 (08:44→16:49)
[2017-04-15] MEDS: POTASSIUM CHLORIDE 20 MEQ TAB.PRT.SR PO SCH ×3 (08:44→10:54)
[2017-04-15] MEDS: NYSTATIN TOP POWDER 15 GM BOTTLE TP SCH ×2 (08:47→16:50)
[2017-04-15] MEDS: Z GUARD REMEDY 2 OZ OINT TP SCH (08:48)
[2017-04-15] MEDS: VITAMINS A AND D 56.7 GM TUBE TP SCH ×2 (08:48→16:50)
[2017-04-15] MEDS: HYDROGEL DRESSING 90 GM TUBE TP SCH (08:48)
[2017-04-15] MEDS: HEPARIN SODIUM, PORCINE 5000 UNITS/1 ML VIAL SQ SCH ×2 (08:57→22:03)
--- NOTE | 2017-04-15 09:11 | NUR ---
SUPERVISOR HEAVY EQUIPMENT NOTE PT TOLERATING MECHANICAL SOFT DIET WELL. WILL CONTINUE TO MONITOR.
[2017-04-15 09:53] LABS: ABG BASE EXCESS 9.2 mmol/L; ABG OXYGEN SATURATION 92.6 % (92.0-98.5); ABG PCO2 66.5 mmHg (35.0-45.0); ABG PO2 68.8 mmHg (75.0-100.0); AaDO2 212.9 mmHg; COHb 1.1 % (0.5-1.5); MetHb 0.7 % (0.0-1.5); O2Hb 90.9 % (94.0-97.0); SITE, ABG Left Radial; VENT MODE, BG 50% VENTURI
[2017-04-15] MEDS ORDERED: PHENOL/SODIUM PHENOLATE 1 BOTTLE MM PRN (13:30)
--- NOTE | 2017-04-15 19:00 | NUR ---
DIESEL ENGINE OPERATOR NOTE PT REMAINS STABLE, TOLERATING VENTI MASK WITH GOOD SATURATION. CONTINUES TO VOID TO URINAL. PT ABLE TO REPOSITION SELF WHILE IN BED. IV SITES C/D/I/PATENT. NO S/O INFILTRATION/PHLEBITIS OBSERVED IVF INFUSING TKO. PT'S CARE WILL BE ENDORSED TO PROFESSOR OF CHEMISTRY RN FOR CONTINUITY OF CARE.
--- NOTE | 2017-04-15 19:59 | NUR ---
PARTNER INTEGRATION PLANNER. INITIAL ASSESSMENT. RECEIVED THE PT REST ON THE BED. AWAKE, ALERT, FOLLOW COMMANDS. OXYGEN VENTURI MASK 40%. SAT 93%. NO ACUTE DISTRESS NOTED. AUDIOVISUAL TECH SHOWING NSR. IV RT UPPER ARM PICC LINE TKO RUNNING. HOB ELEVATED. TURN AND REPOSITION PT INDEPENDENT.
[2017-04-15] MEDS: CEFTRIAXONE 1 G in IV D5W 50 ML IV SCH (22:01)
[2017-04-16] VITALS (25 sets, daily range): BP systolic 95–174; BP diastolic 34–95
--- NOTE | 2017-04-16 | NUR ---
CUSTOMER EXPERIENCE CONSULTANT. VENTURI MASK OFF AND OXYGEN 4L VIA NASAL CANNULA STARTED. SAT 95%. NO ACUTE DISTRESS NOTED. WILL CONTINUE TO MONITOR.
--- NOTE | 2017-04-16 02:00 | NUR ---
HAND WOOD SANDER. PT DESATURATED WITH OXYGEN 4L NASAL CANNULA VENTURI MASK PLACED 40%. WILL CONTINUE TO MONITOR.
--- NOTE | 2017-04-16 03:29 | NUR ---
[place] PRESS OPERATOR. AM CARE. ORAL CARE, BED BATH GIVEN. LINEN CHANGED. REMAINING SAME OXYGEN VENTURI MASK40%. TOLERATED WELL. SAT 93%. NO ACUTE DISTRESS NOTED. RIG WELDER SHOWING SINUS ARRHYTHMIA. AND BUNDLE BRANCH BLOCK. HOB ELEVATED. TURN AND REPOSITION PT INDEPENDENT. CVP LINE CONNECTED TO RT UPPER ARM PICC LINE. WILL CONTINUE TO MONITOR VITALS.
[2017-04-16] MEDS: IPRATROPIUM NEB FS 0.5 MG/2.5 ML AMPUL.NEB NEB SCH ×6 (04:08→22:32)
[2017-04-16] MEDS: ALBUTEROL FS 2.5 MG/0.5 ML VIAL.NEB NEB SCH ×6 (04:08→22:32)
[2017-04-16 05:11] LABS: ALANINE AMINOTRANSFERASE 43 U/L (12-78); ALBUMIN 2.7 g/dL (3.4-5.0); ALKALINE PHOSPHATASE 102 U/L (46-116); ASPARTATE AMINOTRANSFERASE 18 U/L (15-37); BILIRUBIN,TOTAL 0.5 mg/dL (0.2-1.0); CALCIUM, SERUM 9.1 mg/dL (8.5-10.1); CHLORIDE 99 mmol/L (98-107); CREATININE 0.7 mg/dL (0.6-1.3); GLUCOSE 207 mg/dL (74-106); MAGNESIUM 2.3 mg/dL (1.8-2.4); PHOSPHORUS 2.3 mg/dL (2.5-4.9); POTASSIUM 3.7 mmol/L (3.5-5.1); SODIUM SERUM 141 mmol/L (136-145); TOTAL PROTEIN, SERUM 6.5 g/dL (6.4-8.2); UREA NITROGEN, BLOOD 32 mg/dL (7-18)
[2017-04-16 05:39] LABS: CARBON DIOXIDE 40 mmol/L (21-32)
--- NOTE | 2017-04-16 07:15 | NUR ---
FLIGHT SUPERINTENDENT NOTES RECEIVED PATIENT AOX4 , NOT IN ACUTE DISTRESS , DENIES SOB AND DISCOMFORT AT THIS TIME , ON VENTURI MASK 40% WITH SPO2 OF 91% , ON BEDSIDE MONITOR SR ARRHYTHMIA 75 , CVP 3 , TOMMY PICC LINE WITH NS @ TKO , ALL NEEDS ATTENDED , BED ON LOW AND LOCKED POSITION , SIDE RAILS X2 ,CALL LIGHT WITHIN REACH , HOB # 35 , WILL CONTINUE TO MONITOR .
[2017-04-16 07:32] LABS: HEMATOCRIT 53 % (39-51); HEMOGLOBIN 16.6 g/dL (13.5-17.5); LYMPHOCYTES # (AUTO) 1.3 /CMM (0.8-4.8); LYMPHOCYTES % (AUTO) 6.2 % (20.0-44.0); MEAN CORPUSCULAR HEMOGLOBIN 31 PG (26.0-33.0); MEAN CORPUSCULAR HGB CONC 32 g/dl (31.0-36.0); MEAN CORPUSCULAR VOLUME 97 fL (80-96); MONOCYTES % (AUTO) 4.6 % (2.0-12.0); NEUTROPHILS # (AUTO) 18.8 /CMM (1.8-8.9); NEUTROPHILS % (AUTO) 89.2 % (43.0-81.0); PLATELET COUNT (AUTO) 174 /CMM (150-450); RDW COEFFICIENT OF VARIATION 18.5 (11.5-15.0); RED BLOOD CELL COUNT(AUTO) 5.43 MIL/uL (4.5-6.0); WHITE BLOOD COUNT (AUTO) 21.1 K/uL (4.3-11.0)
--- NOTE | 2017-04-16 07:57 | NUR ---
OPERATOR ELECTRONIC WARFARE NOTES PT REFUSES TO WEAR VENTURI MASK @ 40% WHILE EATING , O2 SAT IS DROPPING TO 80% , , ATTEMPTED TO PLACED NC BUT REFUSES , EXPLAINED THE BENEFITS OF WEARING VENTURI MASK , PT VERBALIZED UNDERSTANDING STILL REFUSES TO WEAR VENTURI MASK , PER PT HE WILL WEAR IT AFTER EATING .
[2017-04-16] MEDS ORDERED: BUMETANIDE INJ 16 MG in IV NS 0.9% 16 ML IV ONE (08:00)
[2017-04-16] MEDS: ACETYLCYSTEINE 10% SOLN 400 MG/4 ML VIAL NEB SCH ×3 (08:02→22:32)
[2017-04-16] MEDS: methylPREDNISolone SOD SUCC 125 MG/2ML VIAL IV SCH ×2 (08:50→16:07)
[2017-04-16] MEDS: FAMOTIDINE/PF INJ 20 MG/2 ML VIAL IV SCH ×2 (08:51→21:19)
[2017-04-16] MEDS: AZITHROMYCIN 250 MG TABLET PO SCH (08:52)
[2017-04-16] MEDS: LACTOBACILLUS RHAMNOSUS GG 1 EACH CAP.SPRINK PO SCH ×2 (08:52→16:07)
[2017-04-16] MEDS: HYDROGEL DRESSING 90 GM TUBE TP PRN (08:53)
[2017-04-16] MEDS: Z GUARD REMEDY 2 OZ OINT TP SCH (08:53)
[2017-04-16] MEDS: NYSTATIN TOP POWDER 15 GM BOTTLE TP SCH ×2 (08:53→16:08)
[2017-04-16] MEDS: VITAMINS A AND D 56.7 GM TUBE TP SCH ×2 (08:54→16:08)
[2017-04-16] MEDS: HYDROGEL DRESSING 90 GM TUBE TP SCH (08:54)
[2017-04-16] MEDS: HEPARIN SODIUM, PORCINE 5000 UNITS/1 ML VIAL SQ SCH ×2 (08:55→21:20)
--- NOTE | 2017-04-16 09:00 | NUR ---
SERVER MANAGER NOTES DIET CHANGED TO 2GM SODIUM , PER DIETARY RECOMMENDATION , ORDERED LABS PER DR CAZARES , ORDERS CARRIED OUT
[2017-04-16 10:14] LABS: ABG BASE EXCESS 11.1 mmol/L; ABG OXYGEN SATURATION 91.3 % (92.0-98.5); ABG PCO2 56.1 mmHg (35.0-45.0); ABG PH 7.448 (7.350-7.450); ABG PO2 61.1 mmHg (75.0-100.0); AaDO2 232.3 mmHg; COHb 0.7 % (0.5-1.5); MetHb 0.7 % (0.0-1.5); SITE, ABG Right Brachial; VENT MODE, BG 50% VENTURI MASK
[2017-04-16] MEDS ORDERED: K PHOS NEUTRAL 250 MG TABLET PO ONE (11:30)
--- NOTE | 2017-04-16 19:30 | NUR ---
RN INITIAL NOTE RECEIVED PT IN NO ACUTE DISRESS IN BED. PT IS A/O X 4 AND ABLE TO MAKE NEEDS KNOWN. PT IS ON O2 VIA VENTURI MASK AT 15LPM WITH 40% FIO2. PT TOLERATING WELL WITH SPO2 @ 92%. PT IS ON TELE WITH CONTRILLED AFIB ON THE MONITOR. PT HAS TOMMY PICC LINE THAT IS CLEAN DRY INTACT AND PATENT WITH BUMEX @ 10ML/HR AND NS @ TKO. BED IN LOW LOCK POSITION WITH RIALS UP X 2. CALL LIGHT WITHIN REACH AND ALL SAFETY MEASURES ENSURED AND CARRIED OUT. WILL CONTINUE TO MONITOR FOR ANY CHANGES IN CONDITION.
[2017-04-16] MEDS: CEFTRIAXONE 1 G in IV D5W 50 ML IV SCH (21:19)
[2017-04-17] VITALS (23 sets, daily range): BP systolic 67–162; BP diastolic 34–101
[2017-04-17] MEDS: ALBUTEROL FS 2.5 MG/0.5 ML VIAL.NEB NEB SCH ×6 (02:59→23:30)
[2017-04-17] MEDS: IPRATROPIUM NEB FS 0.5 MG/2.5 ML AMPUL.NEB NEB SCH ×6 (02:59→23:30)
[2017-04-17 04:49] LABS: HEMATOCRIT 56 % (39-51); HEMOGLOBIN 18.2 g/dL (13.5-17.5); MEAN CORPUSCULAR HEMOGLOBIN 31 PG (26.0-33.0); MEAN CORPUSCULAR HGB CONC 32 g/dl (31.0-36.0); MEAN CORPUSCULAR VOLUME 96 fL (80-96); PLATELET COUNT (AUTO) 179 /CMM (150-450); RDW COEFFICIENT OF VARIATION 18.7 (11.5-15.0); WHITE BLOOD COUNT (AUTO) 26.2 K/uL (4.3-11.0)
[2017-04-17 05:10] LABS: CALCIUM, SERUM 8.3 mg/dL (8.5-10.1); CHLORIDE 95 mmol/L (98-107); CREATININE 0.9 mg/dL (0.6-1.3); GLUCOSE 197 mg/dL (74-106); PHOSPHORUS 2.6 mg/dL (2.5-4.9); POTASSIUM 3.3 mmol/L (3.5-5.1); SODIUM SERUM 140 mmol/L (136-145); UREA NITROGEN, BLOOD 41 mg/dL (7-18)
[2017-04-17 05:23] LABS: CARBON DIOXIDE 44 mmol/L (21-32)
[2017-04-17] MEDS ORDERED: POTASSIUM CHLORIDE 20 MEQ TAB.PRT.SR PO ONE ×2 (06:19→13:30)
[2017-04-17] MEDS: POTASSIUM CHLORIDE 20 MEQ TAB.PRT.SR PO SCH ×3 (06:21→08:31)
--- NOTE | 2017-04-17 07:00 | NUR ---
ICU INITIAL NOTE RECEIVED PT AWAKE, IN BED, PT IS A/O X 3, PERIODS OF CONFUSIONS, PT IS ABLE TO FOLLOW COMMANDS AND MAKE NEEDS KNOWN, PT IS ON VENTURI MASK @ 15LPM W/ FIO2 40%, SATING WELL, NO S/S OF RESP. DISTRESS OR SOB NOTED AT THIS TIME, PT IS ON BEDSIDE MONITOR SHOWING CONTROLLED A-FIB @ 90'S, NO C/O FO CHEST PAIN OR DISCOMFORT AT THIS TIME, PT HAS TOMMY PICC, C/D/I, PATENT, FLUSHING WELL, WITH GOOD BLOOD RETURN, RUNNING TKO @ 5ML/HR, NO S/S OF INFECTION/ INFILTRATION NOTED AT THIS TIME, PT IS NOTED WITH MULTIPLE SKIN ISSUES, ALL TREATMENTS ACK AND CARRIED OUT, ALL SAFETY MEASURES IN PLACE AT ALL TIMES, CALL LIGHT WITHIN EASY REACH, WILL MONITOR PT CLOSELY
[2017-04-17] MEDS: ACETYLCYSTEINE 10% SOLN 400 MG/4 ML VIAL NEB SCH ×3 (07:30→23:30)
[2017-04-17] MEDS: HYDROGEL DRESSING 90 GM TUBE TP SCH (08:27)
[2017-04-17] MEDS: AZITHROMYCIN 250 MG TABLET PO SCH (08:27)
[2017-04-17] MEDS: FAMOTIDINE/PF INJ 20 MG/2 ML VIAL IV SCH ×2 (08:27→21:00)
[2017-04-17] MEDS: methylPREDNISolone SOD SUCC 125 MG/2ML VIAL IV SCH (08:27)
[2017-04-17] MEDS: LACTOBACILLUS RHAMNOSUS GG 1 EACH CAP.SPRINK PO SCH ×2 (08:27→16:50)
[2017-04-17] MEDS: Z GUARD REMEDY 2 OZ OINT TP SCH (08:28)
[2017-04-17] MEDS: VITAMINS A AND D 56.7 GM TUBE TP SCH ×2 (08:28→16:51)
[2017-04-17] MEDS: NYSTATIN TOP POWDER 15 GM BOTTLE TP SCH ×2 (08:28→16:50)
[2017-04-17] MEDS: HEPARIN SODIUM, PORCINE 5000 UNITS/1 ML VIAL SQ SCH ×2 (08:29→21:00)
[2017-04-17 09:18] LABS: ABG BASE EXCESS 10.7 mmol/L; ABG OXYGEN SATURATION 88.5 % (92.0-98.5); ABG PCO2 48.9 mmHg (35.0-45.0); ABG PH 7.489 (7.350-7.450); ABG PO2 53.6 mmHg (75.0-100.0); AaDO2 146.4 mmHg; COHb 0.3 % (0.5-1.5); MetHb 0.6 % (0.0-1.5); O2Hb 87.7 % (94.0-97.0); SITE, ABG Right Radial; VENT MODE, BG Nasal Cannula
--- NOTE | 2017-04-17 17:56 | NUR ---
icu note report given to andrew desai, pt was transferred to [facility] via acls protocol, pt was put on tele monitor, andrew and smelter charger aware. Addendum: 04/17/17 at 1758 by BRISEIDA NIETO RN add: all belongings and medication will pt
--- NOTE | 2017-04-17 18:00 | NUR ---
RN NOTES RECEIVED PT ON BED FROM ICU IN ROOM 115-2, A/Ox4, ON O2 AT 4L NC , O2 SAT 90% , JX=683/77 , ON TELE AFIB HR IN 100'S , PT LUIS ANY DISTRESS , REFUSED TO HAVE DINNER AT THIS TIME , R UPPER ARM PICC LINE CDI, SR UP x3, CALL LIGHT WITHIN EASY REACH, PT REFUSED TO HAVE SCD'S ON , EXPLAINED TO PT THE RISKS OF NOT HAVING SCD'S ON , PT STILL REFUSED, CONTINUE TO MONITOR PT CLOSELY AND ENDORSE TO REFRACTORY SPECIALIST NURSE FOR CONTINUITY OF CARE .
--- NOTE | 2017-04-17 19:45 | NUR ---
RN INITIAL NOTE RECEIVED PT IN NO ACUTE DISRESS IN BED. PT IS A/O X 4 AND ABLE TO MAKE NEEDS KNOWN. PT IS ON O2 VIA NC AT 5LPM. PT TOLERATING WELL WITH SPO2 @ 90%. PT IS ON TELE WITH CONTRILLED AFIB ON THE MONITOR. PT HAS TOMMY PICC LINE THAT IS CLEAN DRY INTACT AND PATENT WITH SALINE LOCK. BED IN LOW LOCK POSITION WITH RIALS UP X 2. CALL LIGHT WITHIN REACH AND ALL SAFETY MEASURES ENSURED AND CARRIED OUT. WILL CONTINUE TO MONITOR FOR ANY CHANGES IN CONDITION.
--- NOTE | 2017-04-17 21:45 | NUR ---
RN NOTE PT WANTED TO STAND AND URINATE. ASSISTED PT TO STAND AND PT BECAME VERY SOB. SAT PT ON BED. PT ASKED TO GO OUTSIDE AND SMOKE A CIGARETTE. INFORMED PT THAT HOSPITAL IS A NON SMOKING HOSPITAL AND HE WILL NOT BE ABLE TO GO OUTSIDE TO SMOKE. PT BECAME VERY AGITATED AND STARTED TO YELL THAT HE WILL GO OUTSIDE TO SMOKE NO MATTER WHAT. PLACED PT ON O2 SAT AND REMOVED O2 TO SEE IF PT CAN SUSTAIN O2 SAT @ 88-90 PER ORDERS. PT O2 SAT DESTATED TO LOW 80S AND O2 REPLACED. PT BEGAN PULLED OFF LEADS AND O2. PT CONTINUE TO YELL, TRY TO GET UP AND BECAME COMBATIVE. SECURITY WAS CALLED FOR SAFETY.
[2017-04-17] MEDS: NICOTINE PATCH (21MG) 21 MG PATCH.TD24 TD SCH (22:00)
--- NOTE | 2017-04-17 22:00 | NUR ---
RN NOTES UPDATED DR ROJAS REGARDING PATIENT'S CURRENT BEHAVIOR. DR ROJAS WITH NEW ORDER FOR NICOTINE PATCH 21MG AND BILATERAL SOFT WRIST RESTRAINTS TO MAINTAIN PATIENT'S SAFETY. ORDERS READ BACK FOR CLARIFICATION. WILL CARRY OUT ALL NEW ORDERS. PRIMARY NURSE MADE AWARE
[2017-04-17] MEDS: CEFTRIAXONE 1 G in IV D5W 50 ML IV SCH (22:01)
--- NOTE | 2017-04-17 22:15 | NUR ---
RN NOTE OFFERED PT NICOTINE PATCH AND PT REFUSED. PT TEACHING REGARDING EFFECTS OF NICOTINE PATCH AND TEACHING ABOUT SMOKING CESSATION RENDERED. PT STILL STRONGLY REFUSES AND WILL CONTINUE TO MONITOR.
[2017-04-17] MEDS ORDERED: HALOPERIDOL LACTATE INJ 5 MG/ML VIAL ONE (23:57)
[2017-04-18] MEDS ORDERED: HALOPERIDOL LACTATE INJ 5 MG/ML VIAL IM ONE
--- NOTE | 2017-04-18 | NUR ---
RN NOTE PT REFUSED VITALS FOR 0000.
[2017-04-18] MEDS: ALBUTEROL FS 2.5 MG/0.5 ML VIAL.NEB NEB SCH ×6 (03:30→23:30)
[2017-04-18] MEDS: IPRATROPIUM NEB FS 0.5 MG/2.5 ML AMPUL.NEB NEB SCH ×6 (03:30→23:30)
--- NOTE | 2017-04-18 04:00 | NUR ---
RN NOTE PT REFUSED 0400 VITALS.
--- NOTE | 2017-04-18 06:48 | NUR ---
RN NOTE PT IS CALM AND COOPERATIVE. RESTRAINTS DISCONTINUED AND SITTER PROVIDED.
--- NOTE | 2017-04-18 06:49 | NUR ---
RN CLOSING NOTE PT REMAINS CALM AND COOPERATIVE. ALL NEEDS MET AND ALL ORDERS CARRIED OUT. WILL ENDORSE CARE TO AM RN FOR CONTINUITY OF CARE.
--- NOTE | 2017-04-18 07:00 | NUR ---
RN NOTES RECEIVED PT ON BED, A/Ox1, FOLLOWS SIMPLE COMMANDS , AGITATED, SITTER AT THE BEDSIDE FOR SAFETY PRECAUTIONS, NO SOB NOTED , ON O2 4L N/C , ON TELE ST IN 100'S WITH PAC'S AND PVC'S , R UPPER ARM PICC LINE CDI, BED IN LOWEST POSITION AND LOCKED , CALL LIGHT WITHIN EASY REACH AND ALL SAFETY MEASURES ENSURED AND CARRIED OUT. WILL CONTINUE TO MONITOR FOR ANY CHANGES IN CONDITION.
[2017-04-18 07:27] LABS: BASOPHILS % (AUTO) 0.1 % (0.0-2.0); EOSINOPHILS # (AUTO) 0.1 /CMM (0.0-0.7); EOSINOPHILS % (AUTO) 0.3 % (0.0-6.0); LYMPHOCYTES # (AUTO) 5.8 /CMM (0.8-4.8); MEAN CORPUSCULAR HEMOGLOBIN 31 PG (26.0-33.0); MEAN CORPUSCULAR HGB CONC 32 g/dl (31.0-36.0); MEAN CORPUSCULAR VOLUME 96 fL (80-96); MONOCYTES # (AUTO) 1.5 /CMM (0.1-1.30); MONOCYTES % (AUTO) 4.6 % (2.0-12.0); PLATELET COUNT (AUTO) 185 /CMM (150-450); RDW COEFFICIENT OF VARIATION 18.6 (11.5-15.0); RED BLOOD CELL COUNT(AUTO) 6.23 MIL/uL (4.5-6.0)
[2017-04-18] MEDS: ACETYLCYSTEINE 10% SOLN 400 MG/4 ML VIAL NEB SCH ×3 (07:35→23:30)
[2017-04-18 07:36] LABS: HEMOGLOBIN 19.2 g/dL (13.5-17.5)
[2017-04-18 07:57] LABS: HEMATOCRIT 60 % (39-51); WHITE BLOOD COUNT (AUTO) 32.4 K/uL (4.3-11.0)
[2017-04-18 08:00] VITALS: BP_SYST 139; BP_SYST 144; BP_DIAS 77; BP_DIAS 87
--- NOTE | 2017-04-18 08:28 | NUR ---
PATIENT SEEN AND EVALUATED BY DR. SIMMONS ,PATIENT AGITATED ,REFUSING TREATMENT ,MD AWARE,NO SEDATION FOR NOW R/T INCREASE CO2 LEVEL,SITTER AT BEDSIDE FOR SAFETY,
[2017-04-18 08:48] LABS: BAND % (MANUAL) 4 % (0.0-5.0); LYMPHOCYTES % (MANUAL) 16 % (16-48); MONOCYTES % (MANUAL) 8 % (0-11.0); NEUTROPHILS % (MANUAL) 72 (42-76)
[2017-04-18] MEDS: FAMOTIDINE/PF INJ 20 MG/2 ML VIAL IV SCH ×2 (08:55→21:00)
[2017-04-18] MEDS: methylPREDNISolone SOD SUCC 125 MG/2ML VIAL IV SCH (08:55)
--- NOTE | 2017-04-18 08:55 | NUR ---
PATIENT CALM,QUIET ,SITTER AT BEDSIDE.SAFETY OBSERVED.
[2017-04-18] MEDS: NICOTINE PATCH (21MG) 21 MG PATCH.TD24 TD SCH (09:00)
[2017-04-18] MEDS: LACTOBACILLUS RHAMNOSUS GG 1 EACH CAP.SPRINK PO SCH ×2 (09:00→16:09)
[2017-04-18] MEDS: HEPARIN SODIUM, PORCINE 5000 UNITS/1 ML VIAL SQ SCH (09:00)
[2017-04-18] MEDS: AZITHROMYCIN 250 MG TABLET PO SCH (09:03)
[2017-04-18] MEDS: NYSTATIN TOP POWDER 15 GM BOTTLE TP SCH ×2 (09:04→16:09)
[2017-04-18] MEDS: Z GUARD REMEDY 2 OZ OINT TP SCH (09:04)
[2017-04-18] MEDS: HYDROGEL DRESSING 90 GM TUBE TP SCH (09:05)
[2017-04-18] MEDS: HYDROGEL DRESSING 90 GM TUBE TP PRN ×2 (09:05→16:09)
[2017-04-18] MEDS: VITAMINS A AND D 56.7 GM TUBE TP SCH ×2 (09:05→16:09)
--- NOTE | 2017-04-18 09:30 | NUR ---
RN NOTES CLARE LIND PERINATAL BREASTFEEDING ASSISTANT NOTIFIED REGARDING WBC= 32.4 AND H/H 19.2 AND 60, NO NEW ORDER GIVEN , CONTINUE TO MONITOR PT .
[2017-04-18 12:00] VITALS: BP 99/68
--- NOTE | 2017-04-18 12:00 | NUR ---
RN NOTES PT SLEEPING AT THIS TIME , SITTER AT THE BEDSIDE FOR SAFETY PRECAUTIONS , CONTINUE TO MONITOR .
--- NOTE | 2017-04-18 14:00 | NUR ---
RANJITH NOTES ROOM AIR O2 SAT 94-95%. PT LUIS ANY DISTRESS , Addendum: 04/18/17 at 1618 by ANABELLE ESPINOZA RN PLEASE DISREGARD ABOVE CHARTING , CHARTED ON WRONG PT .
[2017-04-18 16:00] VITALS: BP 140/84
[2017-04-18] MEDS ORDERED: IV D5/0.45 NACL 1,000 ML IV PRN (16:00)
[2017-04-18 16:31] LABS: CALCIUM, SERUM 8.9 mg/dL (8.5-10.1); CARBON DIOXIDE 39 mmol/L (21-32); CHLORIDE 104 mmol/L (98-107); CREATININE 0.9 mg/dL (0.6-1.3); GLUCOSE 278 mg/dL (74-106); POTASSIUM 4.3 mmol/L (3.5-5.1); SODIUM SERUM 146 mmol/L (136-145); UREA NITROGEN, BLOOD 52 mg/dL (7-18)
--- NOTE | 2017-04-18 18:15 | NUR ---
RN NOTES PT REMAINS THE SAME , O2 SAT 90% , ST ON TELE WITH PAC'S AND PVC'S , STILL TRIES TO PULL LINES AT TIMES , SITTER AT THE BEDSIDE FOR SAFETY , IVF D51/2 NS AT 70CC/HR RUNNING VIA R UPPER ARM PICC LINE , SR UP x3, BED LOCKED AND IN LOWEST POSITION , NO SIGNIFICANT CHANGES NOTED ON THIS SHIFT
[2017-04-18 19:25] VITALS: BP 110/66
--- NOTE | 2017-04-18 19:30 | NUR ---
RN INITIAL NOTE RECEIVED PATIENT IN NO ACUTE DISTRESS IN BED. PATIENT IS LETHARGIC, BUT EASILY WOKEN, A/O X 3, . PT IS ON O2 VIA NC AT 4LPM, SPO2 = 92%. PT IS ON TELEMETRY MONITORING REVEALING SINUS TACHYCARDIA WITH PVCs AND PACs. PT HAS TOMMY PICC LINE THAT IS CLEAN DRY INTACT AND PATENT WITH IVF AT PRESCRIBED RATES. BED IN LOWEST AND LOCKED POSITION WITH RAILS UP X 2. CALL LIGHT WITHIN REACH AND ALL SAFETY MEASURES ENSURED AND CARRIED OUT. 1:1 SITTER AT BEDSIDE FOR SAFETY. WILL CONTINUE TO MONITOR FOR ANY CHANGES IN CONDITION.
[2017-04-18 20:00] VITALS: BP 110/66
[2017-04-19] VITALS: BP 110/66
[2017-04-19] MEDS: ALBUTEROL FS 2.5 MG/0.5 ML VIAL.NEB NEB SCH ×6 (03:30→23:51)
[2017-04-19] MEDS: IPRATROPIUM NEB FS 0.5 MG/2.5 ML AMPUL.NEB NEB SCH ×6 (03:30→23:52)
[2017-04-19 04:00] VITALS: BP 134/71
[2017-04-19 06:29] LABS: BASOPHILS % (AUTO) 0.2 % (0.0-2.0); HEMATOCRIT 56 % (39-51); HEMOGLOBIN 17.7 g/dL (13.5-17.5); LYMPHOCYTES # (AUTO) 4.3 /CMM (0.8-4.8); LYMPHOCYTES % (AUTO) 15.2 % (20.0-44.0); MEAN CORPUSCULAR HEMOGLOBIN 31 PG (26.0-33.0); MEAN CORPUSCULAR HGB CONC 32 g/dl (31.0-36.0); MEAN CORPUSCULAR VOLUME 96 fL (80-96); MONOCYTES # (AUTO) 1.5 /CMM (0.1-1.30); MONOCYTES % (AUTO) 5.2 % (2.0-12.0); NEUTROPHILS # (AUTO) 22.5 /CMM (1.8-8.9); NEUTROPHILS % (AUTO) 79.4 % (43.0-81.0); PLATELET COUNT (AUTO) 173 /CMM (150-450); RDW COEFFICIENT OF VARIATION 18.8 (11.5-15.0); RED BLOOD CELL COUNT(AUTO) 5.76 MIL/uL (4.5-6.0); WHITE BLOOD COUNT (AUTO) 28.3 K/uL (4.3-11.0)
[2017-04-19 06:56] LABS: CALCIUM, SERUM 8.4 mg/dL (8.5-10.1); CHLORIDE 105 mmol/L (98-107); CREATININE 0.8 mg/dL (0.6-1.3); GLUCOSE 186 mg/dL (74-106); POTASSIUM 3.6 mmol/L (3.5-5.1); SODIUM SERUM 145 mmol/L (136-145); UREA NITROGEN, BLOOD 42 mg/dL (7-18)
--- NOTE | 2017-04-19 07:00 | NUR ---
RN CLOSING NOTES PATIENT RESTING COMFORTABLY IN BED, ALL DUE MEDS ADMINISTERED PRESCRIBED. WILL ENDORSE THE PATIENT TO THE AM SHIFT NURSE FOR DIONNE
[2017-04-19] MEDS: ACETYLCYSTEINE 10% SOLN 400 MG/4 ML VIAL NEB SCH ×3 (07:09→23:52)
[2017-04-19 07:36] LABS: CARBON DIOXIDE 42 mmol/L (21-32)
--- NOTE | 2017-04-19 07:45 | NUR ---
RN NOTES RECEIVED PT FROM BACK TENDER FOURDRINIER IN STABLE CONDITION, A&OX2, ON 4L NASAL CANNULA NO SOB OR DISTRESS NOTED. SR ON THE TELE MONITOR WITH PVCS, PACS. Addendum: 04/19/17 at 0749 by ANALIA HIGHTOWER RN RN NOTES RECEIVED PT FROM BACK TENDER FOURDRINIER IN STABLE CONDITION, A&OX2, ON 4L NASAL CANNULA NO SOB OR DISTRESS NOTED. SR ON THE TELE MONITOR WITH PVCS, PACS. HR IN THE 80S. SITTER AT BEDISDE. TOMMY PICC LINE DRESSING DRY AND INTACT WITH IVF RUNNING AT 70ML/HR. CALL LIGHT WITHIN REACH, SIDE RAILS UPX3, BED LOCKED AND IN LOWEST POSITION WILL CONT TO MONITOR.
[2017-04-19 08:00] VITALS: BP 126/68
[2017-04-19] MEDS ORDERED: acetaZOLAMIDE SODIUM 500 MG/VIAL VIAL IV ONE (08:30)
[2017-04-19] MEDS: LACTOBACILLUS RHAMNOSUS GG 1 EACH CAP.SPRINK PO SCH ×2 (08:36→17:23)
[2017-04-19] MEDS: ACETAMINOPHEN 325 MG TABLET PO PRN (08:36)
[2017-04-19] MEDS: FAMOTIDINE/PF INJ 20 MG/2 ML VIAL IV SCH ×2 (08:37→21:40)
[2017-04-19] MEDS: NICOTINE PATCH (21MG) 21 MG PATCH.TD24 TD SCH (08:37)
[2017-04-19] MEDS: methylPREDNISolone SOD SUCC 125 MG/2ML VIAL IV SCH (08:37)
[2017-04-19] MEDS: HYDROGEL DRESSING 90 GM TUBE TP PRN (08:39)
[2017-04-19] MEDS: VITAMINS A AND D 56.7 GM TUBE TP SCH ×2 (08:39→17:24)
--- NOTE | 2017-04-19 09:00 | NUR ---
RN NOTES DVT PUMPS AT BEDSIDE BUT PT REFUSES TO HAVE THEM ON. EDUCATION DONE ON IMPORTANCE STILL REFUSES.
[2017-04-19] MEDS: HYDROGEL DRESSING 90 GM TUBE TP SCH (09:38)
[2017-04-19] MEDS: Z GUARD REMEDY 2 OZ OINT TP SCH (09:38)
[2017-04-19] MEDS: NYSTATIN TOP POWDER 15 GM BOTTLE TP SCH ×2 (09:39→17:24)
[2017-04-19 10:46] LABS: LYMPHOCYTES % (MANUAL) 12 % (16-48); MONOCYTES % (MANUAL) 8 % (0-11.0); NEUTROPHILS % (MANUAL) 80 (42-76)
[2017-04-19] MEDS: predniSONE 10 MG TABLET PO SCH (11:54)
[2017-04-19] MEDS: IV NS 0.9% 250 ML IV PRN (12:03)
[2017-04-19 16:00] VITALS: BP 135/71
--- NOTE | 2017-04-19 18:43 | NUR ---
RN NOTES PT RESTING IN BED WITH SITTER AT BEDSIDE. NO EPISODES OF AGGRESSION OR ATTEMPTS TO GET OUT OF BED ON MY SHIFT. ON 4L NASAL CANNULA NO SOB OR DISTRESS NOTED. NO SIGNIFICANT CHANGES THROUGHOUT MY SHIFT, ALL NEEDS MET. CALL LIGHT WITHIN REACH, SIDE RAILS UPX3, WILL ENDORSE TO ONCOMING SHIFT.
--- NOTE | 2017-04-19 19:30 | NUR ---
RN NOTES RECEIVED PATIENT IN BED AWAKE, AO X 2, ABLE TO MAKE NEEDS KNOWN. NO ACUTE DISTRESS NOTED. DENIES ANY PAIN AT THIS TIME. IV SITE PATENT, INTACT; FLUSHED. ON LOW BED WITH BILATERAL UPPER SIDE RAILS UP. SAFETY REMINDERS GIVEN. SITTER AT BEDSIDE. CALL LIGHT WITHIN EASY REACH. WILL CONTINUE TO MONITOR.
[2017-04-19 20:00] VITALS: BP 130/72
[2017-04-20] MEDS: IPRATROPIUM NEB FS 0.5 MG/2.5 ML AMPUL.NEB NEB SCH ×4 (03:21→14:51)
[2017-04-20] MEDS: ALBUTEROL FS 2.5 MG/0.5 ML VIAL.NEB NEB SCH ×4 (03:21→14:51)
[2017-04-20 04:00] VITALS: BP 126/68
--- NOTE | 2017-04-20 06:20 | NUR ---
RN NOTES PATIENT ASLEEP, EASILY AROUSABLE. RESPIRATIONS EVEN. NO SIGNS OF PAIN NOTED. DUE MEDS GIVEN WITH NO ASE NOTED. NEEDS ATTENDED. REPOSITIONED Q 2 HOURS. SAFETY PRECAUTIONS AND COMFORT MEASURES IN PLACE. WILL GIVE REPORT TO DAY SHIFT FOR CONTINUITY OF CARE.
[2017-04-20 06:55] LABS: EOSINOPHILS # (AUTO) 0.1 /CMM (0.0-0.7); EOSINOPHILS % (AUTO) 0.4 % (0.0-6.0); HEMATOCRIT 52 % (39-51); HEMOGLOBIN 16.6 g/dL (13.5-17.5); LYMPHOCYTES # (AUTO) 5.1 /CMM (0.8-4.8); LYMPHOCYTES % (AUTO) 17.3 % (20.0-44.0); MEAN CORPUSCULAR HEMOGLOBIN 31 PG (26.0-33.0); MEAN CORPUSCULAR HGB CONC 32 g/dl (31.0-36.0); MEAN CORPUSCULAR VOLUME 97 fL (80-96); MONOCYTES # (AUTO) 1.6 /CMM (0.1-1.30); MONOCYTES % (AUTO) 5.3 % (2.0-12.0); NEUTROPHILS # (AUTO) 22.9 /CMM (1.8-8.9); PLATELET COUNT (AUTO) 164 /CMM (150-450); RDW COEFFICIENT OF VARIATION 18.7 (11.5-15.0); RED BLOOD CELL COUNT(AUTO) 5.37 MIL/uL (4.5-6.0); WHITE BLOOD COUNT (AUTO) 29.8 K/uL (4.3-11.0)
--- NOTE | 2017-04-20 07:05 | NUR ---
RN NOTES RECEIVED PATIENT ON BED, A/Ox2, RESPIRATION EVEN AND UNLABORED, ON 4L O2 N/C , NO SOB NOTED, R UPPER ARM PICC LINE SITE CDI, NO ACUTE DISTRESS NOTED. BED LOCKED AND IN LOWEST POSITION , SR UP x3 SITTER AT BEDSIDE FOR SAFETY PRECAUTIONS , CALL LIGHT WITHIN EASY REACH. WILL CONTINUE TO MONITOR.
[2017-04-20 07:23] LABS: CALCIUM, SERUM 8.2 mg/dL (8.5-10.1); CARBON DIOXIDE 32 mmol/L (21-32); CHLORIDE 101 mmol/L (98-107); CREATININE 0.8 mg/dL (0.6-1.3); GLUCOSE 240 mg/dL (74-106); POTASSIUM 3.2 mmol/L (3.5-5.1); SODIUM SERUM 139 mmol/L (136-145); UREA NITROGEN, BLOOD 35 mg/dL (7-18)
[2017-04-20] MEDS: ACETYLCYSTEINE 10% SOLN 400 MG/4 ML VIAL NEB SCH ×2 (07:36→14:51)
[2017-04-20 08:00] VITALS: BP_SYST 122; BP_SYST 133; BP_DIAS 71
[2017-04-20] MEDS: HYDROGEL DRESSING 90 GM TUBE TP PRN (08:41)
[2017-04-20] MEDS: VITAMINS A AND D 56.7 GM TUBE TP SCH ×2 (08:41→16:17)
[2017-04-20] MEDS: Z GUARD REMEDY 2 OZ OINT TP SCH (08:41)
[2017-04-20] MEDS: NYSTATIN TOP POWDER 15 GM BOTTLE TP SCH ×2 (08:42→16:18)
[2017-04-20] MEDS: HYDROGEL DRESSING 90 GM TUBE TP SCH (08:42)
[2017-04-20] MEDS: POTASSIUM CHLORIDE 20 MEQ TAB.PRT.SR PO SCH ×4 (08:42→12:30)
[2017-04-20] MEDS: LACTOBACILLUS RHAMNOSUS GG 1 EACH CAP.SPRINK PO SCH ×2 (08:43→16:19)
[2017-04-20] MEDS: NICOTINE PATCH (21MG) 21 MG PATCH.TD24 TD SCH (08:43)
[2017-04-20] MEDS: predniSONE 10 MG TABLET PO SCH (08:43)
[2017-04-20] MEDS ORDERED: PANTOPRAZOLE 40 MG TABLET.DR PO SCH (09:00)
[2017-04-20 10:17] LABS: LYMPHOCYTES % (MANUAL) 12 % (16-48); MONOCYTES % (MANUAL) 10 % (0-11.0); NEUTROPHILS % (MANUAL) 78 (42-76)
[2017-04-20] MEDS ORDERED: ALBU2.5V13 NEB (14:04)
[2017-04-20] MEDS ORDERED: PRED20TA PO (14:04)
[2017-04-20] MEDS ORDERED: PRED5TAB48 PO (14:04)
[2017-04-20] MEDS ORDERED: PRED10TA PO (14:04)
[2017-04-20] MEDS ORDERED: IPRA0.2S9 NEB (14:04)
[2017-04-20 16:00] VITALS: BP_SYST 121; BP_SYST 122; BP_DIAS 71; BP_DIAS 79
--- NOTE | 2017-04-20 16:00 | NUR ---
RN NOTES R UPPER ARM PICC LINE DISCONTINUED PER MATTRESS FILLING MACHINE TENDER ORDER .
[2017-04-20] MEDS: ACETAMINOPHEN 325 MG TABLET PO PRN (16:19)
--- NOTE | 2017-04-20 18:29 | NUR ---
RN NOTES REPORT GIVEN TO HANSA KASPER AT [facility] , AWAITING FOR AMBULANCE TO DE ICER INSTALLER THE PT TO [facility] , PT STABLE , NO DISTRESS NOTED .
--- NOTE | 2017-04-20 19:11 | NUR ---
RN NOTES EMT PERONEAL ON THE FLOOR TO TAKE PT TO [facility] , PT STABLE , REPORT GIVEN EMT .
--- NOTE | 2017-04-20 19:18 | NUR ---
RN NOTES PT LEFT THE FLOOR TO [facility] VIA AMBULANCE IN STABLE CONDITION .
== END 2017-04-20 19:15 | DRG 208 ==
LOC: ER 19:30 → UNDOADMIN 04-11 02:52 → TELE 04-11 02:52 → ICU 04-11 05:15 → TELE 04-11 05:15 → ICU 04-11 06:43 → TELE1 04-17 17:39 → MEDSG1 04-19 08:22
PROVIDERS: ADMIT Nurse Practitioner Acute Care; ATTEND Nurse Practitioner Acute Care
PROC: 0BH17EZ Insertion of Endotracheal Airway into Trachea, Via Natural or Artificial Opening (ICD-10-PCS; principal; 2017-04-11)
PROC: 5A1945Z Respiratory Ventilation, 24-96 Consecutive Hours (ICD-10-PCS; 2017-04-11)
PROC: 5A09357 Assistance with Respiratory Ventilation, Less than 24 Consecutive Hours, Continuous Positive Airway Pressure (ICD-10-PCS; 2017-04-11)
PROC: 02HV33Z Insertion of Infusion Device into Superior Vena Cava, Percutaneous Approach (ICD-10-PCS; 2017-04-11)
DX: J44.1 Chronic obstructive pulmonary disease with (acute) exacerbation (principal); J96.21 Acute and chronic respiratory failure with hypoxia; N17.0 Acute kidney failure with tubular necrosis; G92 Toxic encephalopathy; I50.33 Acute on chronic diastolic (congestive) heart failure; J18.9 Pneumonia, unspecified organism; E87.0 Hyperosmolality and hypernatremia; J90 Pleural effusion, not elsewhere classified; E86.9 Volume depletion, unspecified; J96.22 Acute and chronic respiratory failure with hypercapnia; E87.4 Mixed disorder of acid-base balance; L03.115 Cellulitis of right lower limb; L03.116 Cellulitis of left lower limb; E66.2 Morbid (severe) obesity with alveolar hypoventilation; J98.11 Atelectasis; M80.88XA Other osteoporosis with current pathological fracture, vertebra(e), initial encounter for fracture; E87.5 Hyperkalemia; F32.9 Major depressive disorder, single episode, unspecified; G47.00 Insomnia, unspecified; I70.0 Atherosclerosis of aorta; K21.9 Gastro-esophageal reflux disease without esophagitis; Z59.0 Homelessness; Z82.5 Family history of asthma and other chronic lower respiratory diseases; Z68.23 Body mass index [BMI] 23.0-23.9, adult; E11.65 Type 2 diabetes mellitus with hyperglycemia; F06.8 Other specified mental disorders due to known physiological condition; D72.829 Elevated white blood cell count, unspecified; T38.0X5A Adverse effect of glucocorticoids and synthetic analogues, initial encounter; Y92.9 Unspecified place or not applicable
CPT/HCPCS: 31720; 36415; 36569; 36600; 71010-TC; 72131-TC; 76770-TC; 80048-TC; 80053-TC; 80061-TC; 80202-TC; 81000-TC; 82550-TC; 82570-TC; 82803-TC; 82962-TC; 83735-TC; 83970; 84100-TC; 84155; 84155-TC; 84165; 84300-TC; 84443-TC; 84484-TC; 85025-TC; 85378-TC; 86580-TC; 87040-TC; 87081-TC; 87086-TC; 93307-TC; 94003-TC; 94762-TC; 94799-TC; 97116-TC; 97530-TC; A4216; A4606; A6248; A6402; C1751; J0330; J0696; J1100; J1120; J1630; J1644; J1650; J1815; J1940; J2270; J2405; J2543; J2930; J3370; J3480; J3490; J7030; J7040; J7050; J7060; Q9967; Z7610

== ENCOUNTER 2017-09-22 07:05 | Inpatient (IN) | payer MEDICARE, MEDICAID ==
[~2017-09-22] VITALS: Ht 175.3 cm; Wt 86.2 kg
[2017-09-22] VITALS (66 sets, daily range): BP systolic 67–143; BP diastolic 30–88
[~2017-09-22 07:05] MED LIST: ALBU2.5V13 NEB; IPRA0.2S9 NEB; PRED10TA PO; PRED20TA PO; PRED5TAB48 PO
--- NOTE | 2017-09-22 07:05 | NUR ---
BIB RA 60 FROM [facility],IO AND NICK AIRWAY ESTABLISHED, V-FIB ON THE MONITOR,SHOCKED 3X,3 ROUNDS OF EPI GIVEN FULFILLMENT REPRESENTATIVE,BO=677. CPR IN PROGRESS. LAST WELL KNOWN 614.
--- NOTE | 2017-09-22 07:08 | NUR ---
[address] ROBLES
--- NOTE | 2017-09-22 07:10 | NUR ---
[address] ROBLES
--- NOTE | 2017-09-22 07:12 | NUR ---
PULSE PRESENT, SECOND ATROPINE GIVEN PER DR. ROBLES. CPR HELD AT THIS TIME.
--- NOTE | 2017-09-22 07:17 | NUR ---
CALLED [facility] FOR ICU BED
--- NOTE | 2017-09-22 07:17 | NUR ---
ANOTHER EPI GIVEN PER DR. ROBLES.
--- NOTE | 2017-09-22 07:23 | NUR ---
CENTRAL LINE PLACED ON RIJ BY DR. ROBLES.
[2017-09-22] MEDS ORDERED: NOREPINEPHRINE 8 MG in IV D5W 500 ML IV PRN ×3 (07:30→10:30)
--- NOTE | 2017-09-22 07:37 | NUR ---
PATIENT ET TUBE CHANGED BY MD, NEW ET: 7.5, 23 AT THE LIP, POSITIVE CO2 COLOR CHANGE. VENT SETTINGS: AC 20, TV 550, FIO2 100, NO PEEP.
--- NOTE | 2017-09-22 07:50 | NUR ---
RIGHT CHEST TUBE INSERTED BY DR. ROBLES. NO COMPLICATIONS NOTED, MARSHALLESE TROCHANTER, 32 FR.
--- NOTE | 2017-09-22 07:50 | NUR ---
CHEST TUBE INSERTED BY DR MARGARET SANFORD
[2017-09-22 07:53] LABS: BASOPHILS # (AUTO) 0.1 /CMM (0.0-0.2); BASOPHILS % (AUTO) 0.4 % (0.0-2.0); EOSINOPHILS % (AUTO) 1.5 % (0.0-6.0); HEMATOCRIT 45 % (39-51); HEMOGLOBIN 14.5 g/dL (13.5-17.5); LYMPHOCYTES # (AUTO) 4.4 /CMM (0.8-4.8); LYMPHOCYTES % (AUTO) 30.7 % (20.0-44.0); MEAN CORPUSCULAR HGB CONC 32 g/dl (31.0-36.0); MEAN CORPUSCULAR VOLUME 98 fL (80-96); MONOCYTES # (AUTO) 0.9 /CMM (0.1-1.30); NEUTROPHILS # (AUTO) 8.7 /CMM (1.8-8.9); NEUTROPHILS % (AUTO) 61.4 % (43.0-81.0); PLATELET COUNT (AUTO) 138 /CMM (150-450); RDW COEFFICIENT OF VARIATION 15.7 (11.5-15.0); RED BLOOD CELL COUNT(AUTO) 4.59 MIL/uL (4.5-6.0); WHITE BLOOD COUNT (AUTO) 14.2 K/uL (4.3-11.0)
--- NOTE | 2017-09-22 07:54 | NUR ---
RT NOTE PT INTUBATED PER MD ORDER SETTINGS PRESCRIBES AC 20, 550,100% +0. ALARMS SET PER PROTOCOL AND AUDIBLE, 7.5 ETT 23CM AT THE LIP. VENT PLUGGED IN TO RED OUTLET, AMBU BAG AT BEDSIDE, NO DISTRESS NOTED WILL CONTINUETO MONITOR. Addendum: 09/22/17 at 0756 by MELVIN MOLINA RT Amended: Links added.
[2017-09-22 07:56] LABS: APPEARANCE,URINE SL CLOUDY (CLEAR); BILIRUBIN,URINE NEGATIVE (NEGATIVE); BLOOD, URINE NEGATIVE Ery/uL (NEGATIVE); COLOR,URINE YELLOW (YELLOW); KETONES,URINE NEGATIVE (NEGATIVE); LEUKOCYTE ESTERASE ,URINE NEGATIVE (NEGATIVE); NITRITE, URINE NEGATIVE (NEGATIVE); PROTEIN,URINE 1+ mg/dl (NEGATIVE); UGLUCOSE NEGATIVE (NEGATIVE); UROBILINOGEN,URINE 0.2 EU/dL (0.2)
--- NOTE | 2017-09-22 07:56 | NUR ---
CALLED PHARMACY FOR EPI IP
[2017-09-22] MEDS ORDERED: DOBUTAMINE IV ONE (08:00)
[2017-09-22] MEDS ORDERED: NOREPINEPHRINE 8 MG in IV D5W 500 ML IV ONE (08:00)
[2017-09-22] MEDS ORDERED: EPINEPHRINE (1:1000) 2 MG in IV D5W 250 ML IV PRN (08:00)
[2017-09-22] MEDS ORDERED: IV NS 0.9% 1,000 ML BAG IV ONE (08:00)
[2017-09-22] MEDS ORDERED: D5W IV ONE (08:00)
[2017-09-22] MEDS ORDERED: BUDE10.2 IH (08:04)
[2017-09-22] MEDS ORDERED: TRAM50TA2 PO (08:04)
[2017-09-22] MEDS ORDERED: PANT40TA2 PO (08:04)
[2017-09-22] MEDS ORDERED: LISI2.5T2 PO (08:04)
[2017-09-22] MEDS ORDERED: DULO30CA2 PO (08:04)
[2017-09-22] MEDS ORDERED: NA P133E RC (08:04)
[2017-09-22] MEDS ORDERED: ACET-868 PO (08:04)
[2017-09-22] MEDS ORDERED: BISA10SU8 RC (08:04)
[2017-09-22] MEDS ORDERED: ALBU8.5H8 IH (08:04)
[2017-09-22] MEDS ORDERED: LIDO30AD10 TP (08:04)
[2017-09-22] MEDS ORDERED: FURO-145 PO (08:04)
[2017-09-22] MEDS ORDERED: ACID1TAB12 PO (08:04)
[2017-09-22] MEDS ORDERED: MAGN400O6 PO (08:04)
[2017-09-22] MEDS ORDERED: POTA20TA83 PO (08:04)
[2017-09-22 08:14] LABS: INR 1.12 (0.87-1.13)
[2017-09-22 08:21] LABS: BACTERIA,URINE Few /HPF (None Seen); RBC,URINE NONE SEEN /HPF (0-2); SQUAMOUS EPITHELIAL CELL,UR Few /HPF (None Seen); WBC,URINE 0-2 /HPF (0-3)
[2017-09-22 08:22] LABS: SPERM,URINE Present /HPF (None Seen); URINE AMORPHOUS PHOSPHATES Moderate /HPF (None Seen)
--- NOTE | 2017-09-22 08:24 | NUR ---
CARDIOLOGY ON-CALL,DR PRADO PAGED
[2017-09-22 08:27] LABS: ALANINE AMINOTRANSFERASE 40 U/L (12-78); ALBUMIN 2.5 g/dL (3.4-5.0); ALKALINE PHOSPHATASE 84 U/L (46-116); ASPARTATE AMINOTRANSFERASE 48 U/L (15-37); BILIRUBIN,DIRECT 0.2 mg/dL (0.0-0.2); BILIRUBIN,TOTAL 0.6 mg/dL (0.2-1.0); CALCIUM, SERUM 8.5 mg/dL (8.5-10.1); CARBON DIOXIDE 17 mmol/L (21-32); CHLORIDE 101 mmol/L (98-107); CREATININE 1.4 mg/dL (0.6-1.3); POTASSIUM 4.9 mmol/L (3.5-5.1); SODIUM SERUM 140 mmol/L (136-145); TOTAL PROTEIN, SERUM 6.2 g/dL (6.4-8.2); UREA NITROGEN, BLOOD 18 mg/dL (7-18)
[2017-09-22 08:29] LABS: GLUCOSE 357 mg/dL (74-106)
[2017-09-22 08:32] LABS: TROPONIN I 1.167 ng/mL (0.00-0.056)
--- NOTE | 2017-09-22 08:37 | NUR ---
DR CHRIS RASMUSSEN,PCP PAGED AT [phone]
--- NOTE | 2017-09-22 08:39 | NUR ---
CHRIS FRAZIER,LEARNING DESIGN SPECIALIST PAGED AT [phone]
--- NOTE | 2017-09-22 08:51 | NUR ---
SERGIO PAGED AGAIN
--- NOTE | 2017-09-22 09:02 | NUR ---
REPORT GIVEN TO CLARISA KASPER FOR DIONNE UPON ADMISSION.
--- NOTE | 2017-09-22 09:05 | NUR ---
SECOND ORDER OF NOREPINEPHRINE NOT ADMINISTERED, DUPLICATE ORDER.
--- NOTE | 2017-09-22 09:35 | NUR ---
PATIENT TRANSPORTED TO [facility] VIA ACLS PROTOCOL. RNCLARISA TO PROVIDE DIONNE.
[2017-09-22] MEDS ORDERED: IV D5/ 0.9% NACL 1,000 ML IV PRN (09:46)
--- NOTE | 2017-09-22 09:50 | NUR ---
COMPOUND SPECIALIST NOTES RECEIVED PATIENT OPENS EYES TO DEEP PAIN STIMULI , DOESN'T FOLLOW COMMANDS , ON MECHANICAL VENTILATOR SETTINGS ORDERED WITH SPO2 OF 100% , ETT 7.12/[address] , RIGHT LATERAL CHEST TUBE IN PLACE DRAINING VIA DRY SUCTION WATER SEAL ATTACHED TO 40MMHG SUCTION DRAINING WITH BLOODY OUTPUT , COMPLETE HEART BLOCK 35 ON BEDSIDE MONITOR , PACER PACED ATTACHED TO MONITOR , FC DRAINING VIA GRAVITY , ON KCI MATTRESS , R IJ TRIPLE LUMEN CATH PATENT AND INTACT WITH LEVOPHED @ 12MCG/MIN , DOBUTAMINE @ 20MCG/KG/MIN , EPINEPHRINE DRIP @ 7MCG/MIN INFUSING WELL , ALL NEEDS ATTENDED , BED ON LOW AND LOCKED POSITION , SIDE RAILS X2 ,WILL CONTINUE TO MONITOR
[2017-09-22] MEDS ORDERED: ONDANSETRON HCL/PF 4 MG/2 ML VIAL IVP PRN (10:00)
[2017-09-22] MEDS ORDERED: ACETAMINOPHEN 650 MG/SUPP.RECT RC PRN (10:00)
[2017-09-22] MEDS ORDERED: DOPamine 400MG/D5W 250ML RTU 250 ML IV PRN (10:00)
[2017-09-22] MEDS ORDERED: DoBUTamine 500 MG/250 ML PIGGYBACK IV ONE (10:00)
[2017-09-22] MEDS ORDERED: IV NS 0.9% 1,000 ML BAG IV PRN (10:30)
[2017-09-22] MEDS: IV NS 0.9% 1,000 ML IV PRN ×2 (10:30→18:50)
[2017-09-22 10:57] LABS: ABG BASE EXCESS -7.4 mmol/L; ABG PCO2 44.6 mmHg (35.0-45.0); ABG PH 7.259 (7.350-7.450); AaDO2 554.9 mmHg; COHb 0.9 % (0.5-1.5); MetHb 0.4 % (0.0-1.5); O2Hb 96.7 % (94.0-97.0); PEEP,BG 0 cm H2O; SITE, ABG A-Line; VENT MODE, BG AC 20 550 +0 100%; VT, ABG 550 mL
[2017-09-22] MEDS ORDERED: MIDAZOLAM HCL 100 MG in IV NS 0.9% 80 ML IV PRN (11:00)
[2017-09-22] MEDS ORDERED: IPRATROPIUM NEB FS 0.5 MG/2.5 ML AMPUL.NEB NEB PRN (11:00)
[2017-09-22] MEDS ORDERED: ALBUTEROL FS 2.5 MG/0.5 ML VIAL.NEB NEB PRN (11:00)
--- NOTE | 2017-09-22 11:00 | NUR ---
D/W VERNELL PIERCE AND CLINICAL SAFETY SPECIALIST CHITO, NURSING TIRE DESIGN ENGINEER HAYLEE AND ICU COORDINATOR LUIS THAT WE DO NOT HAVE COOL NORMAL SALINE AVAILABLE TO ICU EACH ARE AWARE. WE HAVE PLACED THE PT IN ANTERIOR AND POSTERIOR COOLING MATTRESSES AND ICE PACKS AND ESOPHAGEAL PROBE TEMPERATURE READS 35 DEGREES. WE WILL CONTINUUE TO COOL UNTIL TEMP 32-34 DEGREES.
--- NOTE | 2017-09-22 11:20 | NUR ---
RESIDENTIAL COUNSELOR NOTES NEMO PIERCE POLICE DETENTION ATTENDANT AT BEDSIDE , INSERTING RIGHT FEMORAL A LINE AND TRIPLE LUMEN CATH , R IJ TRIPLE LUMEN REMOVED BY POLICE DETENTION ATTENDANT , POLICE DETENTION ATTENDANT RE INSERTING R IJ CORDIS INTRODUCER DEVICE . WILL CONTINUE TO MONITOR .
--- NOTE | 2017-09-22 11:40 | NUR ---
NUCLEAR SCIENTIST NOTES NGT ADVANCED 8-10 cm PER RADIOLOGY REPORT ,
[2017-09-22 11:41] LABS: CREATINE KINASE, TOTAL 873 U/L (39-308)
[2017-09-22 11:42] LABS: ALANINE AMINOTRANSFERASE 49 U/L (12-78); ALBUMIN 2.8 g/dL (3.4-5.0); ALKALINE PHOSPHATASE 94 U/L (46-116); ASPARTATE AMINOTRANSFERASE 102 U/L (15-37); BILIRUBIN,TOTAL 0.9 mg/dL (0.2-1.0); CALCIUM, SERUM 8.1 mg/dL (8.5-10.1); CARBON DIOXIDE 23 mmol/L (21-32); CHLORIDE 99 mmol/L (98-107); CREATININE 1.6 mg/dL (0.6-1.3); MAGNESIUM 2.4 mg/dL (1.8-2.4); PHOSPHORUS 7.3 mg/dL (2.5-4.9); POTASSIUM 4.5 mmol/L (3.5-5.1); SODIUM SERUM 135 mmol/L (136-145); TOTAL PROTEIN, SERUM 6.5 g/dL (6.4-8.2); UREA NITROGEN, BLOOD 23 mg/dL (7-18)
--- NOTE | 2017-09-22 11:45 | NUR ---
#5 FR BALLOON TIPPED TRANSVENOUS PACEMAKER PLACED BY DR ANTHONY VIA RT INTERNAL JUGULAR #7 FR CORDIS. PACER THRESHOLD MA TAKEN ALL THE WAY DOWN TO 0.2 WITH 100% V PACING ACHIEVED. WIRE LEFT IN SHEATH AT 40 CM AND PACEMAKER SET AT RATE 60 BPM WITH MA OF 5. HEAVILY SECURED WITH DSGS AND TAPE AND PACER JUNCTION WIRES PLACED INSIDE ON GLOVE AND TAPED. PACER CONTROLLER LOCKED OUT
--- NOTE | 2017-09-22 11:46 | NUR ---
PER DR ANTHONY PACEMAKER WIRE POSITION IS AT 40 CM
[2017-09-22 11:47] LABS: BASOPHILS % (AUTO) 0.2 % (0.0-2.0); EOSINOPHILS % (AUTO) 0.2 % (0.0-6.0); HEMATOCRIT 44 % (39-51); HEMOGLOBIN 14.2 g/dL (13.5-17.5); LYMPHOCYTES # (AUTO) 1.4 /CMM (0.8-4.8); LYMPHOCYTES % (AUTO) 6.6 % (20.0-44.0); MEAN CORPUSCULAR HGB CONC 32 g/dl (31.0-36.0); MEAN CORPUSCULAR VOLUME 96 fL (80-96); MONOCYTES # (AUTO) 1.2 /CMM (0.1-1.30); MONOCYTES % (AUTO) 5.4 % (2.0-12.0); NEUTROPHILS # (AUTO) 18.8 /CMM (1.8-8.9); NEUTROPHILS % (AUTO) 87.6 % (43.0-81.0); PLATELET COUNT (AUTO) 183 /CMM (150-450); RDW COEFFICIENT OF VARIATION 15.7 (11.5-15.0); RED BLOOD CELL COUNT(AUTO) 4.55 MIL/uL (4.5-6.0); WHITE BLOOD COUNT (AUTO) 21.5 K/uL (4.3-11.0)
[2017-09-22 11:53] LABS: INR 1.14 (0.87-1.13)
[2017-09-22 11:54] LABS: GLUCOSE 487 mg/dL (74-106)
[2017-09-22] MEDS ORDERED: DOBUTamine 500 MG in IV D5W 210 ML IV PRN ×2 (12:00)
--- NOTE | 2017-09-22 12:10 | NUR ---
DR PRADO IN TO EXAMINE AND ALL DRIPS AND FLUIDS R/V'D WITH
[2017-09-22] MEDS ORDERED: PHENYLEPHRINE 80 MG in IV D5W 250 ML IV PRN (12:30)
[2017-09-22] MEDS ORDERED: EPINEPHRINE (1:1000) 1 MG in IV D5W 250 ML IV PRN (12:30)
[2017-09-22] MEDS ORDERED: DEXTROSE 50%-WATER 50 ML DISP.SYRIN IV PRN ×2 (12:30→17:30)
[2017-09-22] MEDS ORDERED: INSULIN REGULAR, HUMAN 100 UNIT/ML 3 ML VIAL SQ PRN (12:30)
[2017-09-22] MEDS: BLOOD SUGAR DIAGNOSTIC 1 EACH STRIP IN SCH ×4 (12:31→21:07)
[2017-09-22] MEDS ORDERED: ATROPINE SULFATE 1 MG/10 ML DISP.SYRIN IV ONE (13:05)
[2017-09-22] MEDS ORDERED: EPINEPHRINE (1:10,000) SYRINGE 1 MG/10 ML DISP.SYRIN IVP ONE (13:08)
[2017-09-22] MEDS: PIPERACILLIN /TAZOBACTAM 3.375 G in IV D5W 50 ML IV SCH ×3 (13:53→23:57)
[2017-09-22] MEDS: NOREPINEPHRINE 16 MG in IV D5W 500 ML IV PRN (13:54)
[2017-09-22] MEDS: VANCOMYCIN 1 GM in IV D5W 250 ML IV SCH (14:43)
[2017-09-22] MEDS ORDERED: FEE PK DOSING 1 MIN EA MC ONE (15:13)
[2017-09-22 15:30] LABS: CREATINE KINASE MB 62.2 ng/mL (0-3.6)
[2017-09-22 15:34] LABS: ABG BASE EXCESS -10.3 mmol/L; ABG OXYGEN SATURATION 98.6 % (92.0-98.5); ABG PCO2 57.8 mmHg (35.0-45.0); ABG PH 7.141 (7.350-7.450); ABG PO2 202.9 mmHg (75.0-100.0); COHb 0.1 % (0.5-1.5); MetHb 0.5 % (0.0-1.5); SITE, ABG A-Line; VENT MODE, BG AC 20 600 100% 0
[2017-09-22 16:22] LABS: CALCIUM, SERUM 8.2 mg/dL (8.5-10.1); CARBON DIOXIDE 22 mmol/L (21-32); CHLORIDE 99 mmol/L (98-107); CREATININE 1.9 mg/dL (0.6-1.3); MAGNESIUM 2.5 mg/dL (1.8-2.4); POTASSIUM 4.6 mmol/L (3.5-5.1); SODIUM SERUM 134 mmol/L (136-145); UREA NITROGEN, BLOOD 28 mg/dL (7-18)
[2017-09-22 16:25] LABS: GLUCOSE 389 mg/dL (74-106)
--- NOTE | 2017-09-22 17:43 | NUR ---
D/W DR ABREU ALL TROPONINS AND TOTAL CK. NO NEED TO CALL CARDIOLOGY PER MD
[2017-09-22] MEDS: INSULIN REGULAR, HUMAN 100 UNIT/ML 3 ML VIAL SQ PRN ×2 (17:50→21:09)
--- NOTE | 2017-09-22 18:00 | NUR ---
SEMICONDUCTOR TESTING GROUP LEADER NOTES UNABLE TO TURN AND REPOSITION PATIENT DUE TO UNDERLYING CONDITION .
--- NOTE | 2017-09-22 19:30 | NUR ---
Received patient s/p v-fib arrest on complete heart block with RIJ transvenous pacemaker in place rate 60,MA 5.V-paced. Dressing c/d/i.Levophed gtt infusing for BP support.A-line in placed.Therapeutic hypothermia in progress to keep temp 32-34 degrees Celcius with cooling blanket underneath patient and on top, both axilla and groin.On vent support at prescribed rate. Right Chest tube in place draining serosanguineous output.Air leaks noted MD aware.Dressing C/D/I.Right NGT clamped.NPO status maintained.No bowel sounds on auscultation.FC in place with scanty urine output.IV's infusing via right femoral TLC. Site intact.Closely monitored.
--- NOTE | 2017-09-22 20:30 | NUR ---
Patient incontinent of soft stools.Kept clean and dry.Noted sacral redness.Turned and repositioned.
[2017-09-23] VITALS (107 sets, daily range): BP systolic 71–143; BP diastolic 28–83
--- NOTE | 2017-09-23 | NUR ---
Patient latest temp 33.3 degrees Celcius.Incontinent of soft brown stools moderate amount. Perineal care and bed bath rendered. Turned and repositioned.
[2017-09-23] MEDS: BLOOD SUGAR DIAGNOSTIC 1 EACH STRIP IN SCH ×5 (01:17→23:57)
[2017-09-23] MEDS: NOREPINEPHRINE 16 MG in IV D5W 500 ML IV PRN (03:23)
[2017-09-23] MEDS: IV NS 0.9% 1,000 ML IV PRN ×2 (04:51→14:06)
--- NOTE | 2017-09-23 05:20 | NUR ---
Patient BS 25 D50 1amp administered per protocol.Rechecked BS 115.No acute distress noted.
[2017-09-23] MEDS: PIPERACILLIN /TAZOBACTAM 3.375 G in IV D5W 50 ML IV SCH ×3 (05:22→20:01)
[2017-09-23 05:54] LABS: MAGNESIUM 2.4 mg/dL (1.8-2.4); PHOSPHORUS 5.1 mg/dL (2.5-4.9)
--- NOTE | 2017-09-23 06:25 | NUR ---
CHINEDU BATISTA notified of patient Blood sugar no new orders received.
[2017-09-23 06:27] LABS: INR 1.06 (0.87-1.13)
--- NOTE | 2017-09-23 07:15 | NUR ---
Patient status unchanged.Transvenous cath in place.V-paced.Right femoral TLC dressing changed under aseptic technique post soiling of large loose BM.Kept clean and dry.Latest temp 33.8 Celcius.Cooling measures continued.No distress noted. Report given to RANJITH Gaspar for continuity of care.
--- NOTE | 2017-09-23 07:15 | NUR ---
HOSPITALITY INTERN NOTES RECEIVED PATIENT RESPONSIVE TO PAIN STIMULI NOTED WITH FACIAL GRIMACING , SQUIRMING , NOT IN ACUTE DISTRESS , SPO2 OF 100% VIA MECHANICAL VENT SETTINGS ORDERED , ETT 7.12/[address] , RIGHT LATERAL CHEST TUBE DRAINING VIA DRY SUCTION WATER SEAL 40MMHG WITH BLOODY OUTPUT NOTED WITH AIR LEAK , V PACING ON BEDSIDE MONITOR WITH TRANSVENOUS PACER @ R IJ CAPTURING CORRECTLY , R NGT PATENT AND INTACT , FC DRAINING VIA GRAVITY WITH REGINA COLORED URINE , ON KCI MATTRESS , R FEMORAL A LINE IN PLACE WITH GOOD BLOOD RETURN AND GOOD WAVE FORM ON THE MONITOR , R FEMORAL TLC PATENT AND INTACT WITH LEVOPHED @ 8MCG/MIN , NS @ 100ML/HR INFUSING WELL , ALL NEEDS ATTENDED , BED ON LOW AND LOCKED POSITION , SIDE RAILS X2 , HYPOTHERMIA PROTOCOL ONGOING , WILL CONTINUE TO MONITOR
[2017-09-23] MEDS: VANCOMYCIN 1 GM in IV D5W 250 ML IV SCH (07:30)
[2017-09-23 08:17] LABS: ABG BASE EXCESS -6.6 mmol/L; ABG OXYGEN SATURATION 99.4 % (92.0-98.5); ABG PCO2 35.6 mmHg (35.0-45.0); ABG PH 7.332 (7.350-7.450); ABG PO2 371.5 mmHg (75.0-100.0); AaDO2 335.9 mmHg; COHb 0.1 % (0.5-1.5); MetHb 0.4 % (0.0-1.5); O2Hb 98.9 % (94.0-97.0); PEEP,BG 0 cm H2O; SITE, ABG A-Line; VT, ABG 700 mL
[2017-09-23 08:29] LABS: BASOPHILS % (AUTO) 0.1 % (0.0-2.0); HEMATOCRIT 45 % (39-51); HEMOGLOBIN 14.6 g/dL (13.5-17.5); LYMPHOCYTES # (AUTO) 1.3 /CMM (0.8-4.8); LYMPHOCYTES % (AUTO) 3.7 % (20.0-44.0); MEAN CORPUSCULAR HGB CONC 33 g/dl (31.0-36.0); MEAN CORPUSCULAR VOLUME 95 fL (80-96); MONOCYTES # (AUTO) 0.9 /CMM (0.1-1.30); MONOCYTES % (AUTO) 2.5 % (2.0-12.0); NEUTROPHILS # (AUTO) 31.9 /CMM (1.8-8.9); NEUTROPHILS % (AUTO) 93.7 % (43.0-81.0); PLATELET COUNT (AUTO) 132 /CMM (150-450); RDW COEFFICIENT OF VARIATION 15.4 (11.5-15.0); RED BLOOD CELL COUNT(AUTO) 4.68 MIL/uL (4.5-6.0)
[2017-09-23 08:49] LABS: ABG BASE EXCESS -6.6 mmol/L; ABG OXYGEN SATURATION 99.4 % (92.0-98.5); ABG PCO2 35.6 mmHg (35.0-45.0); ABG PH 7.332 (7.350-7.450); ABG PO2 371.5 mmHg (75.0-100.0); AaDO2 335.9 mmHg; COHb 0.1 % (0.5-1.5); MetHb 0.4 % (0.0-1.5); O2Hb 98.9 % (94.0-97.0); SITE, ABG A-Line; VT, ABG 700 mL
[2017-09-23] MEDS: PANTOPRAZOLE 40 MG VIAL IV SCH (08:53)
[2017-09-23 08:55] LABS: CALCIUM, SERUM 7.9 mg/dL (8.5-10.1); CARBON DIOXIDE 19 mmol/L (21-32); CHLORIDE 100 mmol/L (98-107); CREATININE 2.1 mg/dL (0.6-1.3); GLUCOSE 59 mg/dL (74-106); MAGNESIUM 2.2 mg/dL (1.8-2.4); PHOSPHORUS 5.1 mg/dL (2.5-4.9); POTASSIUM 4.7 mmol/L (3.5-5.1); SODIUM SERUM 134 mmol/L (136-145); UREA NITROGEN, BLOOD 43 mg/dL (7-18)
--- NOTE | 2017-09-23 08:59 | NUR ---
DAY HAUL YOUTH SUPERVISOR NOTES @ 0900 BS OF 49MG/DL , D50 PRN GIVEN , SLIDING SCALE CHANGE FROM Q4 AGRESSIVE TO NPO SLIDING SCALE Q6 , WILL RE ASSESS BS .
[2017-09-23] MEDS ORDERED: DEXTROSE 50%-WATER 50 ML DISP.SYRIN IV PRN (09:00)
[2017-09-23] MEDS: PROPOFOL 100 ML IV PRN ×2 (09:54→18:17)
--- NOTE | 2017-09-23 10:00 | NUR ---
BRAKE HOLDER NOTES RE EMILIE STARTED , TEMP OF 34 C AT THIS TIME , THERMOSTAT UP IN THE ROOM , TARGET REWARMING IS 1 DEGREE CELCIUS PER HOUR , ON DIPRIVAN @ 10MCG/KG/MIN INFUSING WELL , WITH NS @ 100ML/HR , WILL CALL MD FOR BMP Q4 ORDER .
--- NOTE | 2017-09-23 10:01 | NUR ---
ASSOCIATE PROFESSOR OF THEATRE NOTES\ BS OF 93MG/DL DR MAGANA AT BEDSIDE , DISCUSSED PATIENT STATUS , LABS , ON HYPOTHERMIA PROTOCOL , MD ORDER TO START SEDATING THE PATIENT . DR DUTTA AT BEDSIDE , DISCUSSED LABS , V PACING ON BEDSIDE MONITOR VIA TRANSVENOUS PACING @ R IJ , ON LEVOPHED @ 4MCG/MIN , ON HYPOTHERMIA PROTOCOL , ABSENT BOWEL SOUND NOTED WITH X3 LOOSE BM , LIQUID IN CONSISTENCY WITH NO BLEEDING NOTED , Addendum: 09/23/17 at 1037 by JAVY SMITH RN NOTIFIED DR DUTTA THAT TROPONIN WAS ORDERED THIS AM @ 0800 , VERIFIED IF HE WANTS TO DO SERIES OF TROPONINS , PER MD IF TROPONIN IS TRENDING DOWN NO NEED FOR REPEAT OR SERIES TROPONIN
--- NOTE | 2017-09-23 10:23 | NUR ---
MARINE ERECTOR NOTES NOTIFIED NEMO PIERCE THAT RE WARMING STARTED AT 1000 , VERIFIED IF HE WANTS TO ORDER BMP PER PROTOCOL , PER MD ORDER BMP NOW , AND ANOTHER BMP Q2 X 3 STARTING @ 1200 , WILL CONTINUE TO MONITOR
[2017-09-23 10:33] LABS: TROPONIN I 12.141 ng/mL (0.00-0.056)
--- NOTE | 2017-09-23 10:45 | NUR ---
RUG CLEANER NOTES INSERTED ORAL GASTRIC TUBE , VERIFIED PLACEMENT WITH ANOTHER NURSE EMANUEL , NOTED WITH GURGLING SOUND AROUND THE STOMACH .
--- NOTE | 2017-09-23 11:30 | NUR ---
REMOTE CONTROL ASSEMBLER NOTES SEEN AND EVALUATED BY DR NEMO PIERCE , DISCUSSED LABS , NOTIFIED CHEST XRAY RESULT , CHEST TUBE NOTED WITH AIR LEAK DRAINING WITH BLOODY OUTPUT , CARCASS SPLITTER ORDERED ASPIRIN 81MG , VERIFIED IF ITS OK TO GIVE PER DAIRY TECHNOLOGIST OK TO GIVE ASPIRIN ORDERED , BOWEL SOUNDS ACTIVE UPON AUSCULTATION , ON LEVOPHED @ 4MCG/MIN , RE WARMING INITIATED TARGET TEMP OF 36.8C ,
[2017-09-23 11:34] LABS: CALCIUM, SERUM 7.6 mg/dL (8.5-10.1); CARBON DIOXIDE 22 mmol/L (21-32); CHLORIDE 99 mmol/L (98-107); CREATININE 2.3 mg/dL (0.6-1.3); GLUCOSE 59 mg/dL (74-106); POTASSIUM 4.6 mmol/L (3.5-5.1); SODIUM SERUM 134 mmol/L (136-145); UREA NITROGEN, BLOOD 45 mg/dL (7-18)
[2017-09-23] MEDS ORDERED: GLUCAGON,HUMAN RECOMBINANT 1 MG/VIAL VIAL IM ONE (12:00)
[2017-09-23] MEDS: ASPIRIN 81 MG TAB.CHEW NG SCH (12:01)
[2017-09-23 12:58] LABS: LYMPHOCYTES % (MANUAL) 3 % (16-48); MONOCYTES % (MANUAL) 5 % (0-11.0); NEUTROPHILS % (MANUAL) 92 (42-76)
--- NOTE | 2017-09-23 13:24 | NUR ---
PRODUCER ARBORIST MANAGER NOTES BS OF 81MG/DL S/P GLUCAGON IM INJECTION , CURRENT TEMP OF 35.8 C , WILL CONTINUE TO MONITOR
[2017-09-23 16:05] LABS: CREATINE KINASE, TOTAL > 1000 U/L (39-308)
[2017-09-23 16:06] LABS: CREATINE KINASE MB 381.4 ng/mL (0-3.6)
--- NOTE | 2017-09-23 16:20 | NUR ---
AERIAL ADVERTISER NOTES DR NEMO PIERCE RE INSERTED A NEW CHEST TUBE AT RIGHT LATERAL LOWER CHEST , ATTACHED TO ATRIUM CHEST TUBE VIA - 20MMHG TO 410MMHG WALL SUCTION , NOTED WITH OCCASIONAL BUBBLING AT WATER SEAL , CHEST XRAY OBTAINED AND REVIEWED BY NEMO PIERCE .
[2017-09-23 16:29] LABS: CALCIUM, SERUM 7.8 mg/dL (8.5-10.1); CARBON DIOXIDE 17 mmol/L (21-32); CHLORIDE 98 mmol/L (98-107); CREATININE 2.5 mg/dL (0.6-1.3); GLUCOSE 75 mg/dL (74-106); MAGNESIUM 1.9 mg/dL (1.8-2.4); POTASSIUM 5.6 mmol/L (3.5-5.1); SODIUM SERUM 133 mmol/L (136-145); UREA NITROGEN, BLOOD 46 mg/dL (7-18)
--- NOTE | 2017-09-23 17:15 | NUR ---
LOSS OF SENSE AND CAPTURE OF TRANSVENOUS PACEMAKER, UNDERLYING RHYTHM IS CHB HR 38-44. NO CHANGE IN BP WITHOUT PACING WITH SBP > 110 VIA INTRA ARTERIAL CATHETER AND NIBP. LEVOPED REMAINS AT 2 MKM. I INCREASED THE MA INCREMENTALLY TO 10 AND PACING SPIKES ACHIEVED BUT NO SENSING OF UNDERLYING RHYTHM WITH SPIKES THROUGHOUT THE COMPLEX AND NO CAPTURE THEREFORE MA REDUCED BACK TO 5. CXR POST CHEST TUBE THAT WAS JUST PLACED DOES NOT SHOW APPRECIABLE CHANGE OF POSITION OF PACING WIRE. D/W VERNELL PIERCE AND LEAF STICKER LUZMARIA. DR DUTTA WILL RETURN TO REPOSITION PACING WIRE
[2017-09-23 18:45] LABS: CALCIUM, SERUM 7.7 mg/dL (8.5-10.1); CARBON DIOXIDE 16 mmol/L (21-32); CHLORIDE 99 mmol/L (98-107); CREATININE 2.9 mg/dL (0.6-1.3); GLUCOSE 74 mg/dL (74-106); SODIUM SERUM 134 mmol/L (136-145); UREA NITROGEN, BLOOD 48 mg/dL (7-18)
[2017-09-23 18:49] LABS: POTASSIUM 6.3 mmol/L (3.5-5.1)
--- NOTE | 2017-09-23 18:50 | NUR ---
DR DUTTA IN TO SUCCESSFULLY REPOSITION TV PACEMAKER WITH RATE 60 AND MA 5. MULTIFUNCTION PACING PADS IN PLACE FOR BACKUP TRANSCUTANEOUS PACING. SERUM POTASSIUM 6.3 D/W DNP STAN AND CARDIOLOGY-FOR CALCIUM GLUCONATE, D 50, REG INSULIN AND 15 MG ALBUTEROL VIA HHN
[2017-09-23] MEDS ORDERED: ALBUTEROL FS 2.5 MG/0.5 ML VIAL.NEB NEB STA (18:57)
[2017-09-23] MEDS ORDERED: INSULIN REGULAR, HUMAN 100 UNIT/ML 3 ML VIAL IV STA (18:59)
[2017-09-23] MEDS ORDERED: Calcium Gluconate 1GM/10ML 4.65 MEQ in IV NS 0.9% 50 ML IV ONE (19:00)
[2017-09-23] MEDS ORDERED: DEXTROSE 50%-WATER 50 ML DISP.SYRIN IVP ONE (19:00)
[2017-09-23] MEDS ORDERED: Calcium Gluconate 0.465 MEQ/ML VIAL IV ONE ×2 (19:00)
[2017-09-23] MEDS ORDERED: Calcium Gluconate 1GM/10ML 9.3 MEQ in IV NS 0.9% 250 ML IV ONE (19:30)
--- NOTE | 2017-09-23 19:30 | NUR ---
PT GIVEN 15MG OF ALBUTEROL PER DR DUTTA. RN AWARE.
[2017-09-23] MEDS ORDERED: PIPERACILLIN /TAZOBACTAM 3.375 G VIAL IV ONE ×2 (19:47→19:48)
--- NOTE | 2017-09-23 20:00 | NUR ---
Received patient sedated responsive to painful stimuli.Patient on vent support on AC mode tolerating well.SPO2 100%.Right lateral chest tube in place with air leaks noted and small serosanguineous liquid in the tube.Dressing C/D/I.With emphysema noted to both upper chest and neck.MD aware.Patient underlying rhythm complete HB with RIJ Transvenous Pacemaker in place V-paced rate 60 MA 5.Levophed gtt infusing for BP support and will titrate accordingly.Sedated on Diprivan gtt at 15 mcg.OGT patent and placement verified. Remain NPO.IVF infusing well.FC to gravity no urine output noted at this time.Monitored closely.
--- NOTE | 2017-09-23 20:12 | NUR ---
PT RECEIVED INTUBATED 7.5 ETT SECURED AT 23CM AT THE LIP ON 840 VENT. PT TOLERATING VENT SETTINGS. VENT ALARMS SET AND AUDIBLE. AMBU BAG AT BEDSIDE. VENT PLUGGED INTO RED OUTLET. WILL CONTINUE TO MONITOR. Addendum: 09/23/17 at 2014 by LAURIE DENIS RT Amended: Links added.
--- NOTE | 2017-09-23 22:00 | NUR ---
Dick Ruiz called he said patient will have pacemaker insertion tomorrow.Needs to call relatives to sign consent. made aware that patient has no family here only a friend.
[2017-09-23 22:51] LABS: POTASSIUM 5.2 mmol/L (3.5-5.1)
--- NOTE | 2017-09-23 23:00 | NUR ---
Received a call from Zain Anthony,patient friend.Made aware of patient having pacemaker placement tomorrow.He said he don't have any power of associate attorney for this patient to sign consent.
[2017-09-23 23:26] LABS: CREATINE KINASE MB 146.5 ng/mL (0-3.6)
[2017-09-24] VITALS (96 sets, daily range): BP systolic 71–145; BP diastolic 37–98
[2017-09-24] MEDS: VANCOMYCIN 1 GM in IV D5W 250 ML IV SCH ×2 (01:00→19:41)
[2017-09-24] MEDS: PIPERACILLIN /TAZOBACTAM 3.375 G in IV D5W 50 ML IV SCH ×4 (02:02→19:02)
[2017-09-24] MEDS: PROPOFOL 100 ML IV PRN ×2 (03:50→08:43)
--- NOTE | 2017-09-24 04:00 | NUR ---
Patient status unchanged.Per monitor HR 60's but not all HB are paced.VS stable.Levophed gtt, Diprivan gtt and IVF infusing well.AM care done.No acute distress noted.Patient not turned during ths night per order.
[2017-09-24] MEDS: IV NS 0.9% 1,000 ML IV PRN (04:04)
[2017-09-24 05:23] LABS: INR 1.15 (0.87-1.13)
[2017-09-24 05:29] LABS: MAGNESIUM 1.9 mg/dL (1.8-2.4); PHOSPHORUS 6.4 mg/dL (2.5-4.9)
[2017-09-24] MEDS: BLOOD SUGAR DIAGNOSTIC 1 EACH STRIP IN SCH ×3 (05:40→18:09)
--- NOTE | 2017-09-24 05:45 | NUR ---
Verified with Screen Maker,aZch Valencia patient not going for surgery at 0730 but probably later today.Still needs consent to be sign will endorse to AM shift RN for DIONNE.
[2017-09-24] MEDS ORDERED: IV NS 0.9% 500 ML BAG IV ONE (06:00)
[2017-09-24] MEDS ORDERED: IV NS 0.9% 500 ML IV ONE (06:30)
--- NOTE | 2017-09-24 06:48 | NUR ---
Zosyn scheduled for 0600 not administered.Pharmacy did not provide medications for 1800 scheduled dose and remaining dose for the cargo service agent.So it was administered late at 2000 and next dose at 0200. Both medications taken from [facility].Will endorse to AM shift RN for DIONNE.
[2017-09-24 08:00] LABS: HEMATOCRIT 37 % (39-51); HEMOGLOBIN 12.3 g/dL (13.5-17.5); LYMPHOCYTES # (AUTO) 1.2 /CMM (0.8-4.8); LYMPHOCYTES % (AUTO) 4.2 % (20.0-44.0); MEAN CORPUSCULAR HGB CONC 33 g/dl (31.0-36.0); MEAN CORPUSCULAR VOLUME 94 fL (80-96); MONOCYTES # (AUTO) 1.2 /CMM (0.1-1.30); MONOCYTES % (AUTO) 4.3 % (2.0-12.0); NEUTROPHILS # (AUTO) 26.7 /CMM (1.8-8.9); NEUTROPHILS % (AUTO) 91.5 % (43.0-81.0); PLATELET COUNT (AUTO) 111 /CMM (150-450); RDW COEFFICIENT OF VARIATION 15.3 (11.5-15.0); RED BLOOD CELL COUNT(AUTO) 3.94 MIL/uL (4.5-6.0); WHITE BLOOD COUNT (AUTO) 29.2 K/uL (4.3-11.0)
[2017-09-24] MEDS: ASPIRIN 81 MG TAB.CHEW NG SCH (08:07)
[2017-09-24 08:23] LABS: CARBON DIOXIDE 13 mmol/L (21-32); CHLORIDE 98 mmol/L (98-107); CREATININE 3.6 mg/dL (0.6-1.3); GLUCOSE 172 mg/dL (74-106); POTASSIUM 5.9 mmol/L (3.5-5.1); SODIUM SERUM 133 mmol/L (136-145); UREA NITROGEN, BLOOD 56 mg/dL (7-18)
[2017-09-24] MEDS: NOREPINEPHRINE 16 MG in IV D5W 500 ML IV PRN (08:43)
[2017-09-24] MEDS ORDERED: DEXTROSE 50%-WATER 50 ML DISP.SYRIN IVP ONE (09:00)
[2017-09-24] MEDS ORDERED: INSULIN REGULAR, HUMAN 100 UNIT/ML 3 ML VIAL IV ONE (09:00)
[2017-09-24] MEDS ORDERED: SODIUM BICARBONATE SYR 50 MEQ/50 ML DISP.SYRIN IV ONE (09:00)
[2017-09-24 09:15] LABS: ABG BASE EXCESS -9.5 mmol/L; ABG OXYGEN SATURATION 98.2 % (92.0-98.5); ABG PCO2 21.4 mmHg (35.0-45.0); ABG PH 7.407 (7.350-7.450); ABG PO2 150.7 mmHg (75.0-100.0); AaDO2 181.7 mmHg; COHb 0.1 % (0.5-1.5); MetHb 0.5 % (0.0-1.5); O2Hb 97.6 % (94.0-97.0); PEEP,BG 0 cm H2O; SITE, ABG A-Line; VT, ABG 650 mL
--- NOTE | 2017-09-24 09:25 | NUR ---
PROJECT SUPERINTENDENT- Obtained consent from two physicians (Dr. Brown & Dr. English) for pacemaker insertion. Consents obtained for procedure, anesthesia & blood transfusion. All consents placed in chart. Will continue to monitor.
--- NOTE | 2017-09-24 09:45 | NUR ---
COMMERCIAL PROPERTY MANAGER- Dr. Brown at bedside. Changed rate of transcutaneous pacer to 80. Pt tolerating well. Will continue to monitor.
[2017-09-24] MEDS ORDERED: ALBUTEROL FS 2.5 MG/0.5 ML VIAL.NEB NEB ONE (10:00)
[2017-09-24] MEDS ORDERED: Calcium Gluconate 1GM/10ML 9.3 MEQ in IV D5W 250 ML IV ONE (10:30)
[2017-09-24] MEDS: PANTOPRAZOLE 40 MG VIAL IV SCH (10:39)
[2017-09-24 11:54] LABS: BAND % (MANUAL) 3 % (0.0-5.0); LYMPHOCYTES % (MANUAL) 7 % (16-48); MONOCYTES % (MANUAL) 2 % (0-11.0); NEUTROPHILS % (MANUAL) 88 (42-76)
--- NOTE | 2017-09-24 12:00 | NUR ---
BRANCH DIRECTORHelena Cheema DNP at bedside. LUMBER SALES SUPERVISOR inserted HD catheter to left groin. Pt tolerated well. Will continue to monitor.
[2017-09-24] MEDS ORDERED: IOHEXOL 0 ML IV ONE (12:42)
[2017-09-24] MEDS ORDERED: LIDOCAINE 1% INJ 50 ML MDV IJ ONE (12:42)
--- NOTE | 2017-09-24 13:30 | NUR ---
SCRAP IRON CUTTER- Pt taken to OR for pacemaker placement by OR staff. 1510- Pt returned from OR, s/p pacemaker placement. Neosynephrine infusing (started in OR) at 10 mcg/min. Will continue to monitor.
[2017-09-24] MEDS ORDERED: FENTANYL PF 250MCG/5ML AMPUL ONE (13:33)
[2017-09-24] MEDS ORDERED: ROCURONIUM BROMIDE 50 MG/5 ML ONE (13:34)
--- NOTE | 2017-09-24 18:30 | NUR ---
FLIGHT CREW TIME CLERK- HD completed, 300 mL was taken out by HD nurse. Will continue to monitor.
--- NOTE | 2017-09-24 19:30 | NUR ---
DIRECTOR OF INDUSTRIAL RELATIONS INITIAL NOTE RECEIVED REPORT FROM TRACIE AKSPER. PT IN BED. INTUBATED, OBTUNDED. VENT SETTINGS AC 28 TV 650 FIO2 50% NO PEEP. TOLERATING SETTINGS. LUNG SOUNDS LEFT DIMINISHED, RIGHT COARSE. LEFT LATERAL CHEST WALL CHEST TUBE, PATENT AND INTACT. PUPILS FIXED AND DILATED AT 7, EQUAL. NEW LEFT CW PACEMAKER WITH V-PACING NOTED. RIGHT FEMORAL A-LINE INTACT WITH CORRELATING WAVE FORM. LEVOPHED FOR BP SUPPORT. OG TUBE PATENT AND INTACT, CLAMPED. NEW LEFT GROIN HD CATH, FIRST HD 09/24, 300ML OUTPUT. MUELLER INTACT WITH NO OUTPUT. NPO AT THIS TIME. BED IN LOW LOCKED POSITION. CALL LIGHT WITHIN REACH. WILL CONTINUE TO CLOSELY MONITOR.
--- NOTE | 2017-09-24 19:56 | NUR ---
PT RECEIVED INTUBATED 7.5 ETT SECURED AT 23CM AT THE LIP ON 840 VENT. SX'D FOR SML AMT OF THICK YELLOW, JOSE SECRETIONS. PT TOLERATING VENT SETTINGS. VENT ALARMS SET AND AUDIBLE. AMBU BAG AT BEDSIDE. VENT PLUGGED INTO RED OUTLET. WILL CONTINUE TO MONITOR. Addendum: 09/24/17 at 1959 by LAURIE DENIS RT Amended: Links added.
--- NOTE | 2017-09-24 21:00 | NUR ---
SENIOR ATTORNEY OG TUBE, RESIDUAL CHECKED. 60cc OF BILE NOTED.
[2017-09-24] MEDS: ATORVASTATIN 40 MG TABLET PO SCH (22:00)
[2017-09-25] VITALS (98 sets, daily range): BP systolic 79–159; BP diastolic 37–90
[2017-09-25] MEDS: IV NS 0.9% 1,000 ML IV PRN ×3 (00:06→23:49)
[2017-09-25] MEDS: BLOOD SUGAR DIAGNOSTIC 1 EACH STRIP IN SCH ×4 (00:08→18:18)
[2017-09-25] MEDS: PIPERACILLIN /TAZOBACTAM 3.375 G in IV D5W 50 ML IV SCH ×5 (00:08→23:50)
[2017-09-25] MEDS: INSULIN REGULAR, HUMAN 100 UNIT/ML 3 ML VIAL SQ PRN ×2 (00:14→05:53)
[2017-09-25] MEDS: NOREPINEPHRINE 16 MG in IV D5W 500 ML IV PRN ×2 (00:57→18:25)
[2017-09-25 05:20] LABS: BASOPHILS # (AUTO) 0.1 /CMM (0.0-0.2); BASOPHILS % (AUTO) 0.2 % (0.0-2.0); EOSINOPHILS % (AUTO) 0.9 % (0.0-6.0); HEMATOCRIT 33 % (39-51); HEMOGLOBIN 11.3 g/dL (13.5-17.5); LYMPHOCYTES # (AUTO) 2.5 /CMM (0.8-4.8); LYMPHOCYTES % (AUTO) 11.5 % (20.0-44.0); MEAN CORPUSCULAR HGB CONC 34 g/dl (31.0-36.0); MEAN CORPUSCULAR VOLUME 93 fL (80-96); MONOCYTES # (AUTO) 0.7 /CMM (0.1-1.30); MONOCYTES % (AUTO) 3.1 % (2.0-12.0); NEUTROPHILS # (AUTO) 18.3 /CMM (1.8-8.9); NEUTROPHILS % (AUTO) 84.3 % (43.0-81.0); PLATELET COUNT (AUTO) 89 /CMM (150-450); RDW COEFFICIENT OF VARIATION 15.5 (11.5-15.0); RED BLOOD CELL COUNT(AUTO) 3.57 MIL/uL (4.5-6.0); WHITE BLOOD COUNT (AUTO) 21.8 K/uL (4.3-11.0)
[2017-09-25 05:38] LABS: INR 0.98 (0.87-1.13)
[2017-09-25 05:45] LABS: CALCIUM, SERUM 7.9 mg/dL (8.5-10.1); CARBON DIOXIDE 20 mmol/L (21-32); CHLORIDE 100 mmol/L (98-107); CREATININE 3.6 mg/dL (0.6-1.3); GLUCOSE 153 mg/dL (74-106); MAGNESIUM 1.8 mg/dL (1.8-2.4); PHOSPHORUS 3.5 mg/dL (2.5-4.9); POTASSIUM 3.6 mmol/L (3.5-5.1); SODIUM SERUM 135 mmol/L (136-145); UREA NITROGEN, BLOOD 43 mg/dL (7-18)
[2017-09-25 06:01] LABS: BAND % (MANUAL) 1 % (0.0-5.0); LYMPHOCYTES % (MANUAL) 7 % (16-48); MONOCYTES % (MANUAL) 3 % (0-11.0); NEUTROPHILS % (MANUAL) 89 (42-76)
--- NOTE | 2017-09-25 07:00 | NUR ---
GENERAL LOT ATTENDANT- Initial Note Received pt orally intubated ETT 7.5, 23 @ the lip. Pt obtunded, respirations even & unlabored, no SOB or distress present. secured entrance monitor reveals V-Pacing (s/p pacemaker placement yesterday to [facility], site clean, dry & intact) OGT present and clamped. Pt remains NPO. Quan catheter draining to gravity eda urine (little output noted). Right lateral chest tube present. Right femoral TLC running NS @ 100 ML/HR and Levophed gtt. HD present to left groin. Will continue to monitor. Addendum: 09/25/17 at 0759 by TRACIE GARZA RN Pt has HD in process.
--- NOTE | 2017-09-25 07:59 | NUR ---
BRICK GRADER- HD completed, 1L removed. Will continue to monitor.
[2017-09-25] MEDS ORDERED: Z GUARD REMEDY 2 OZ OINT TP PRN (08:00)
--- NOTE | 2017-09-25 08:00 | NUR ---
GEAR SETTER- Dr. Lanier at bedside. Md aware pt still has RIJ acces of previous transvenous pacemaker. states it is okay to have in place, will not remove it at this time. Will continue to monitor.
[2017-09-25] MEDS: ASPIRIN 81 MG TAB.CHEW NG SCH (08:19)
[2017-09-25] MEDS: PANTOPRAZOLE 40 MG VIAL IV SCH (08:19)
--- NOTE | 2017-09-25 08:21 | NUR ---
WOUND CARE CONSULT: PT PRESENTS WITH INTACT DEEP TISSUE INJURY TO SACRAL AREA. PT IS INTUBATED AT THIS TIME WITH CURRENT ABBY SCORE OF 10. PROFOUND SCROTAL EDEMA NOTED. MULTIPLE CO-MORBIDITIES NOTED INCLUDING RESPIRATORY FAILURE, RENAL FAILURE, PNEUMOTHORAX WITH CHEST TUBE. PT ON FIRST STEP MATTRESS. ALL SKIN PROTECTION MEASURES IN PLACE AND DISCUSSED WITH NURSING STAFF. WILL SEE PRN. ERNANDEZ IN AGREEMENT WITH PLAN OF CARE. Addendum: 09/25/17 at 0825 by MEHRDAD LAROSE WNDNU Amended: Links added.
--- NOTE | 2017-09-25 09:30 | NUR ---
EXECUTIVE VICE PRESIDENT BUSINESS DEVELOPMENT- Dr. Petersen at bedside and evaluating patient. New order obtained for EEG. Will continue to monitor.
[2017-09-25 09:36] LABS: ABG BASE EXCESS -1.9 mmol/L; ABG OXYGEN SATURATION 98.1 % (92.0-98.5); ABG PCO2 20.3 mmHg (35.0-45.0); ABG PH 7.574 (7.350-7.450); ABG PO2 138.4 mmHg (75.0-100.0); AaDO2 195.3 mmHg; COHb 0.3 % (0.5-1.5); MetHb 0.5 % (0.0-1.5); O2Hb 97.3 % (94.0-97.0); SITE, ABG A-Line; VENT MODE, BG AC 28 650 50%
[2017-09-25] MEDS: Z GUARD REMEDY 2 OZ OINT TP SCH (09:57)
--- NOTE | 2017-09-25 14:30 | NUR ---
MINE MOTOR OPERATOR- Pacemaker device pest control technician at bedside checking functionality of pacemaker. Informed tech pt's HR drops below 60. Motor Bike Mechanic states pacemaker is not fully capturing since rate is set at 60. She made changes on device and informed Dr. iL. Charge nurse aware. Will continue to monitor.
--- NOTE | 2017-09-25 15:30 | NUR ---
CTE TEACHER- Informed Red Cheema DNP pt had 85 ml of bile residuals this morning and 30 ml this afternoon. Per EDUCATIONAL AID, keep pt NPO and hold off on feeding. Will endorse to night time nanny nurse.
--- NOTE | 2017-09-25 19:15 | NUR ---
RN NOTES RECEIVED PT ON BED OBTUNDED. NO ACUTE RESP DISTRESS. PALE LOOKING, WITH ETT 7.5 /23 CM @ LIP CONNECTED TO VENT SETTING AC 18 TV 550 FIO2 50 % PEEP 5. LCW PACEMAKER NOTED TELE MONITOR WAS V- PACING HR 40'S 50'S. OGT CLAMPED WITH GREENISH COLOR OUTPUT. RIGHT LATERAL CHEST WITH CHEST TUBE DRAINAGE INTACT AND NO BLEEDING SHOWS. RIGHT INTERNAL JUGULAR TRANSVENOUS PACEMAKER AND IV SITE ON RIGHT FEMORAL TLC RUNNING WITH NS @ 100 CC/HR , AND LEVOPHED @ 12 MCG/MIN. AND AN A- LINE INTACT AND PATENT. NO LEAKING. VS STABLE AT THIS TIME. KEPT PT CLEAN AND DRY. WILL CONTINUE TO MONITOR.
[2017-09-25] MEDS: ATORVASTATIN 40 MG TABLET PO SCH (22:00)
[2017-09-26] VITALS (80 sets, daily range): BP systolic 65–149; BP diastolic 34–78
--- NOTE | 2017-09-26 00:09 | NUR ---
RN NOTES BS = 59 MG/DL D50% GIVEN PRN ORDERED AND WILL RECHECK BLOOD SUGAR AFTER 15- 30 MINUTES. WILL CONTINUE TO MONITOR.
--- NOTE | 2017-09-26 01:01 | NUR ---
RN NOTES RECHECKED BS= 244 MG/DL NO INSULIN GIVEN DUE TO NPO STATUS
[2017-09-26 05:04] LABS: EOSINOPHILS % (AUTO) 2.7 % (0.0-6.0); HEMATOCRIT 31 % (39-51); HEMOGLOBIN 10.7 g/dL (13.5-17.5); LYMPHOCYTES # (AUTO) 1.8 /CMM (0.8-4.8); LYMPHOCYTES % (AUTO) 9.2 % (20.0-44.0); MEAN CORPUSCULAR HGB CONC 35 g/dl (31.0-36.0); MEAN CORPUSCULAR VOLUME 93 fL (80-96); MONOCYTES # (AUTO) 1.3 /CMM (0.1-1.30); MONOCYTES % (AUTO) 6.9 % (2.0-12.0); NEUTROPHILS # (AUTO) 15.7 /CMM (1.8-8.9); NEUTROPHILS % (AUTO) 81.2 % (43.0-81.0); PLATELET COUNT (AUTO) 73 /CMM (150-450); RDW COEFFICIENT OF VARIATION 15.5 (11.5-15.0); RED BLOOD CELL COUNT(AUTO) 3.35 MIL/uL (4.5-6.0); WHITE BLOOD COUNT (AUTO) 19.3 K/uL (4.3-11.0)
[2017-09-26 05:33] LABS: BAND % (MANUAL) 4 % (0.0-5.0); LYMPHOCYTES % (MANUAL) 8 % (16-48); MONOCYTES % (MANUAL) 8 % (0-11.0); NEUTROPHILS % (MANUAL) 80 (42-76)
[2017-09-26] MEDS: PIPERACILLIN /TAZOBACTAM 3.375 G in IV D5W 50 ML IV SCH (05:36)
[2017-09-26 05:47] LABS: CALCIUM, SERUM 7.5 mg/dL (8.5-10.1); CARBON DIOXIDE 22 mmol/L (21-32); CHLORIDE 106 mmol/L (98-107); CREATININE 3.8 mg/dL (0.6-1.3); GLUCOSE 142 mg/dL (74-106); POTASSIUM 4.4 mmol/L (3.5-5.1); SODIUM SERUM 140 mmol/L (136-145); UREA NITROGEN, BLOOD 36 mg/dL (7-18)
[2017-09-26] MEDS: BLOOD SUGAR DIAGNOSTIC 1 EACH STRIP IN SCH ×4 (05:47→17:30)
[2017-09-26 05:52] LABS: VANCOMYCIN,RANDOM 33 ug/ml (18-26)
--- NOTE | 2017-09-26 07:05 | NUR ---
RN NOTES CLOSELY MONITOR PT A- LINE STILL CONNECTED NOTED WITH DROPPING BP . PT STILL ON LEVOPHED RUNNING AT 20 MCG/MIN AT THIS TIME. TEMPERATURE NOW AT 96.9 DEG F . OGT STILL CLAMPED WITH GREENISH COLOR. NO OUTPUT FROM CHEST TUBE DRAINAGE. NO SIGNIFICANT CHANGES NOTED. CLOSELY MONITORED. WILL ENDORSED CONTINUITY OF CARE TO AM NURSE.
[2017-09-26] MEDS: ASPIRIN 81 MG TAB.CHEW NG SCH (08:00)
[2017-09-26] MEDS: Z GUARD REMEDY 2 OZ OINT TP SCH (08:16)
[2017-09-26] MEDS: PANTOPRAZOLE 40 MG VIAL IV SCH (08:16)
[2017-09-26] MEDS: NOREPINEPHRINE 16 MG in IV D5W 500 ML IV PRN ×2 (09:22→21:36)
[2017-09-26] MEDS: IV NS 0.9% 1,000 ML IV PRN ×2 (09:23→20:46)
--- NOTE | 2017-09-26 11:26 | NUR ---
FLORIAN received a call from pt's RANJITH Angeles requesting for SW to contact pt' sister Olivia Jiang and verify if she is the sister. Per RANJITH Angeles pt's sister resides in [place] and did call the hospital yesterday. FLORIAN contacted Olivia Jiang to inquire if she is the sister. Olivia informed SW she is the pt's sister. FLORIAN asked her if she knew where he was residing. Olivia couldn't recall the name of the facility but informed SW he was living at a care facility in [place]. Pt. is a resident of [facility] which is in [place]. FLORIAN also inquired with Olivia if she was in contact with the pt. Olivia informed SW she was in contact with the pt. time to time when he did have a phone. Olivia resides in [place] and stated she is currently on vacation in [place]. FLORIAN updated RANJITH Angeles regarding the phone conversation.
[2017-09-26] MEDS ORDERED: LABETALOL HCL IV 100MG VIAL ONE (11:44)
[2017-09-26 11:51] LABS: ABG BASE EXCESS -8.6 mmol/L; ABG PCO2 49.1 mmHg (35.0-45.0); ABG PO2 79.3 mmHg (75.0-100.0); AaDO2 149.4 mmHg; COHb 0.8 % (0.5-1.5); MetHb 0.3 % (0.0-1.5); PEEP,BG 0 cm H2O; SITE, ABG A-Line; VENT MODE, BG AC 18 550 40% +0; VT, ABG 550 mL
[2017-09-26 12:11] LABS: ABG BASE EXCESS -10.7 mmol/L; ABG OXYGEN SATURATION 95.6 % (92.0-98.5); ABG PCO2 67.5 mmHg (35.0-45.0); ABG PH 7.085 (7.350-7.450); ABG PO2 108.7 mmHg (75.0-100.0); AaDO2 536.8 mmHg; COHb 0.9 % (0.5-1.5); MetHb 0.3 % (0.0-1.5); O2Hb 94.5 % (94.0-97.0); SITE, ABG A-Line; VENT MODE, BG NASAL CANNULA VIA ETT
--- NOTE | 2017-09-26 12:24 | NUR ---
LICENSED PRACTICAL NURSE INSTRUCTOR NOTE 0720: Received patient obtunded/coma. No pupil reaction, fixed both dilated. No gag or cough reflex when suctioned. ETT to vent, no respiratory distress noted, 100% O2 sat. No response to pain. OGT clamped. Right femoral Lashell intact, with good waveform, zeroed and calibrated. SBP 80-90's, will titrate Levo as ordered. Quan cath intact, noted with very minimal concentrated UOP. Right femoral TLC intact. ON NS @ 100 and Levo @ 20. 0800: S/E by Dr. Lanier, aware for HR 50's, PPM does not capture at times, no new order at this time. 0930: S/E by Dr. English, no new order at this time, continue vent settings at this time. 1000: S/E by Dr. Ken, no new order today, aware for low UOP. 1030: S/E by Dr. Petersen, said patient might be on deep coma or brain . 1140: Code blue secondary to PEA, A line 66/60, even after zeroed. See. code blue sheet. Dr. Cheema arrived and able to appreciate pulse and Lashell. Made aware for sister that was called by SW. 1220: Apnea test done by Dr. Cheema. Per MD, will do again in am. Will continue plan of care for now and might change code status due to no decision maker per MD.
[2017-09-26] MEDS: PIPERACILLIN /TAZOBACTAM 2.25 G in IV D5W 50 ML IV SCH ×2 (12:49→17:29)
[2017-09-26] MEDS ORDERED: EPINEPHRINE (1:10,000) SYRINGE 1 MG/10 ML DISP.SYRIN IVP ONE (14:12)
[2017-09-26] MEDS ORDERED: METOPROLOL TARTRATE INJ 5 MG/5 ML AMPUL IVP ONE (14:12)
--- NOTE | 2017-09-26 17:43 | NUR ---
DIGITAL CAMERA TECHNICIAN NOTE 1330: S/E by Dr. Matthews, made aware, PPM still with episodes of not capturing. 1500: Dr. Cheema called and said he spoke with sister and changed code status to DNR. 1730: No any significant changes noted at this time. Kept clean, warm and dry. Will continue to monitor.
--- NOTE | 2017-09-26 19:30 | NUR ---
RN NOTES: 193 RECEIVED PATIENT , COMATOSED, NON RESPONSIVE. ETT 7.5 AT 23. AC 18 TV 550; FIO2 40% PEEP 0. VPACED ON THE MONITOR. OGT TO CONTINUED LOW SUCTION. ASPIRATION PRECAUTIONS. R FEMORAL TLC PATENT AND INTACT. RIGHT A LINE PRESENT. LEFT FEMORAL HD CATH. FC INTACT, DRAINING TO A CLOSED SYSTEM. SAFETY MEASURES ENSURED. MONITORED ACCORDINGLY. 2100 REPORT GIVEN TO KAYLEE COLLINS RN.
[2017-09-26] MEDS: ATORVASTATIN 40 MG TABLET PO SCH (22:00)
[2017-09-27] VITALS (71 sets, daily range): BP systolic 67–133; BP diastolic 31–72
[2017-09-27] MEDS: BLOOD SUGAR DIAGNOSTIC 1 EACH STRIP IN SCH ×4 (00:14→17:05)
[2017-09-27] MEDS: PIPERACILLIN /TAZOBACTAM 2.25 G in IV D5W 50 ML IV SCH ×4 (00:14→17:05)
[2017-09-27 04:52] LABS: BASOPHILS % (AUTO) 0.3 % (0.0-2.0); EOSINOPHILS % (AUTO) 3.7 % (0.0-6.0); HEMATOCRIT 30 % (39-51); HEMOGLOBIN 10.4 g/dL (13.5-17.5); LYMPHOCYTES # (AUTO) 1.4 /CMM (0.8-4.8); MEAN CORPUSCULAR HGB CONC 34 g/dl (31.0-36.0); MEAN CORPUSCULAR VOLUME 93 fL (80-96); MONOCYTES # (AUTO) 1.4 /CMM (0.1-1.30); NEUTROPHILS # (AUTO) 14.2 /CMM (1.8-8.9); PLATELET COUNT (AUTO) 71 /CMM (150-450); RDW COEFFICIENT OF VARIATION 15.3 (11.5-15.0); RED BLOOD CELL COUNT(AUTO) 3.26 MIL/uL (4.5-6.0); WHITE BLOOD COUNT (AUTO) 17.7 K/uL (4.3-11.0)
[2017-09-27 05:05] LABS: CALCIUM, SERUM 7.9 mg/dL (8.5-10.1); CARBON DIOXIDE 19 mmol/L (21-32); CHLORIDE 107 mmol/L (98-107); CREATININE 4.8 mg/dL (0.6-1.3); GLUCOSE 73 mg/dL (74-106); POTASSIUM 4.1 mmol/L (3.5-5.1); SODIUM SERUM 141 mmol/L (136-145); UREA NITROGEN, BLOOD 47 mg/dL (7-18)
[2017-09-27 05:28] LABS: LYMPHOCYTES % (MANUAL) 10 % (16-48); MONOCYTES % (MANUAL) 9 % (0-11.0); NEUTROPHILS % (MANUAL) 81 (42-76)
[2017-09-27] MEDS: IV NS 0.9% 1,000 ML IV PRN ×3 (06:09→17:05)
--- NOTE | 2017-09-27 07:05 | NUR ---
RT PATIENT REC'D ORALLY INTUBATED ON [facility] VENT WITH SETTINGS SET BY . VENT ALARMS CHECKED + AUDIBLE. CUFF PRESSURE CHECKED ROAD ROLLER ENGINEER. SUCTIONED WITH SMALL AMT JOSE SEMITHICK SECRETIONS. PATIENT NON RESPONSIVE. AMBU BAG AT HOB. Addendum: 09/27/17 at 0931 by TOLU ISAAC RT Amended: Links added.
--- NOTE | 2017-09-27 07:15 | NUR ---
ICU/RN: Pt received in bed, intubated, no distress noted, obtunded. V-pacing 65 on cardiac/vascular sonographer, R-fem a-line with good waveform, zero'd and calibrated per protocol with good correlation to automatic SBP cuff. R fem TLC with flushed, patent with good blood return. GT set to LIS with green gastric output noted. Chest tube attached to wall suction, no leaks present. Chest tube dressing C/D/I, no audible air leaks, no crepitus noted with auscultation; BS diminished throughout. FC draining clear yellow urine to gravity. Alarm sounds audible. Will cont to monitor pt.
[2017-09-27 08:05] LABS: ABG BASE EXCESS -2.7 mmol/L; ABG OXYGEN SATURATION 96.3 % (92.0-98.5); ABG PCO2 28.1 mmHg (35.0-45.0); ABG PH 7.469 (7.350-7.450); ABG PO2 89.1 mmHg (75.0-100.0); AaDO2 163.8 mmHg; COHb 0.3 % (0.5-1.5); MetHb 0.3 % (0.0-1.5); O2Hb 95.7 % (94.0-97.0); PEEP,BG 0 cm H2O; SITE, ABG A-Line
[2017-09-27] MEDS: PANTOPRAZOLE 40 MG VIAL IV SCH (08:43)
[2017-09-27] MEDS: Z GUARD REMEDY 2 OZ OINT TP SCH (08:44)
[2017-09-27] MEDS: ASPIRIN 81 MG TAB.CHEW NG SCH (08:44)
--- NOTE | 2017-09-27 08:45 | NUR ---
ICU/RN: Dr Amador miller; updated on pt status. Pt currently stable on current vent settings. Per MD, conference is set tomorrow with sister Olivia regarding plan of care, per family, keep DNR.
[2017-09-27] MEDS ORDERED: VANCOMYCIN 1 GM in IV D5W 250 ML IV SCH (09:00)
--- NOTE | 2017-09-27 13:00 | NUR ---
ICU/RN: Dr Jesus Manuel miller, updated on pt status. Orders noted and carried out.
[2017-09-27] MEDS ORDERED: VANCOMYCIN 500 MG in IV D5W 100 ML IV PRN (13:30)
--- NOTE | 2017-09-27 15:00 | NUR ---
ICU/RN: Bed bath and oral care rendered. Wound care rendered. Pt continues to have green gastric output through GT. Aspiration precautions in place. Will cont to monitor pt status.
--- NOTE | 2017-09-27 17:00 | NUR ---
ICU/RN: Dr Lopez at bedside for ID consult, updated on pt status. No new orders.
--- NOTE | 2017-09-27 19:45 | NUR ---
ABRASIVE COATING MACHINE OPERATOR INITIAL NOTE RECEIVED REPORT FROM ROSENDO KASPER. PT IN BED. INTUBATED. VENT SETTINGS AC 18 TV 550 FIO2 40 PEEP 0. OBTUNDED. PUPILS FIXED AND DILATED. LUNG SOUNDS RHONCHI. RIGHT CHEST TUBE PATENT WITH MINIMAL DRAINAGE. BOWEL SOUNDS PRESENT, OG TUBE PATENT WITH LOW INTERMITTENT SUCTION. MUELLER INTACT AND DRAINING URINE. IV RIGHT FEMORAL TLC AND A-LINE. REPOSITIONED FOR COMFORT. WILL CONTINUE TO MONITOR.
[2017-09-27] MEDS: ATORVASTATIN 40 MG TABLET PO SCH (21:09)
[2017-09-27] MEDS: NOREPINEPHRINE 16 MG in IV D5W 500 ML IV PRN (21:10)
--- NOTE | 2017-09-27 21:48 | NUR ---
PT RECEIVED INTUBATED 7.5 ETT SECURED AT 23CM AT THE LIP. PT ON 840 VENT ON NOTED SETTINGS. NO RESP DISTRESS. TOLERATING SETTINGS. SX'D FOR SML AMT OF THICK YELLOW SECRETIONS. VENT ALARMS SET AND AUDIBLE. AMBU BAG AT BEDSIDE. VENT PLUGGED INTO RED OUTLET. WILL CONTINUE TO MONITOR. Addendum: 09/27/17 at 2152 by LAURIE DENIS RT Amended: Links added.
[2017-09-28] VITALS (43 sets, daily range): BP systolic 74–155; BP diastolic 38–78
[2017-09-28] MEDS: PIPERACILLIN /TAZOBACTAM 2.25 G in IV D5W 50 ML IV SCH ×3 (00:03→11:43)
[2017-09-28] MEDS: BLOOD SUGAR DIAGNOSTIC 1 EACH STRIP IN SCH ×3 (00:03→11:43)
[2017-09-28] MEDS: IV NS 0.9% 1,000 ML IV PRN (03:24)
[2017-09-28 05:45] LABS: CARBON DIOXIDE 20 mmol/L (21-32); CHLORIDE 107 mmol/L (98-107); CREATININE 5.4 mg/dL (0.6-1.3); GLUCOSE 70 mg/dL (74-106); POTASSIUM 4.1 mmol/L (3.5-5.1); SODIUM SERUM 141 mmol/L (136-145); UREA NITROGEN, BLOOD 52 mg/dL (7-18)
--- NOTE | 2017-09-28 07:20 | NUR ---
ICU/RN: Pt received in bed, intubated no distress on current vent settings, no gag/cough reflex, pupils fixed and dilated, V-pacing 66 on monito. R chest tube to suction with no output, no air leaks noted in chamber, dressing C/D/I with no crepitus auscultated. Lung sounds diminished throughout. R fem a-line zero'd and calibrated with good waveform, BP correlates well with automatic cuff. R fem TLC flushed with good blood return, dressing C/D/I. FC with clear yellow urine output to gravity. Alarm sounds audible. Will cont to monitor pt status.
[2017-09-28] MEDS: Z GUARD REMEDY 2 OZ OINT TP SCH (08:14)
[2017-09-28] MEDS: PANTOPRAZOLE 40 MG VIAL IV SCH (08:14)
[2017-09-28] MEDS: ASPIRIN 81 MG TAB.CHEW NG SCH (08:14)
[2017-09-28 09:44] LABS: ABG BASE EXCESS -7.9 mmol/L; ABG OXYGEN SATURATION 97.8 % (92.0-98.5); ABG PCO2 24.5 mmHg (35.0-45.0); ABG PH 7.412 (7.350-7.450); ABG PO2 123.3 mmHg (75.0-100.0); AaDO2 133.7 mmHg; COHb 0.3 % (0.5-1.5); MetHb 0.4 % (0.0-1.5); O2Hb 97.1 % (94.0-97.0); PEEP,BG 0 cm H2O; SITE, ABG Right Radial; VT, ABG 550 mL
--- NOTE | 2017-09-28 13:09 | NUR ---
ICU/RN: Adalberto Cheema ELECTRICAL & INSTRUMENTATION SUPERVISOR at bedside for apnea test as discussed with Olivia Jiang, pt's sister. . Baseline ABG drawn. Dr English informed and updated.
[2017-09-28 13:11] LABS: ABG BASE EXCESS -9.1 mmol/L; ABG OXYGEN SATURATION 97.3 % (92.0-98.5); ABG PO2 113.9 mmHg (75.0-100.0); AaDO2 142.6 mmHg; COHb 0.3 % (0.5-1.5); MetHb 0.3 % (0.0-1.5); O2Hb 96.7 % (94.0-97.0); SITE, ABG A-Line; VT, ABG 550 mL
--- NOTE | 2017-09-28 13:20 | NUR ---
ICU/RN: Pt continues to be unresponsive, pupils fixed and dilated, no gag reflex noted. ABG's drawn, reveals 20 mm Hg increase in PCO2 over baseline PCO2; positive for brain . Pt pronounced by Adalberto Cheema NP. Dr English and clinic charge nurse updated.
[2017-09-28 13:22] LABS: ABG BASE EXCESS -9.7 mmol/L; ABG OXYGEN SATURATION 98.8 % (92.0-98.5); ABG PO2 327.2 mmHg (75.0-100.0); AaDO2 341.8 mmHg; COHb 0.3 % (0.5-1.5); MetHb 0.5 % (0.0-1.5); SITE, ABG A-Line; VENT MODE, BG APNEA
--- NOTE | 2017-09-28 13:40 | NUR ---
ICU/RN: Called [facility], spoke with Adrea, ruled out for donations. Case #[id number].
--- NOTE | 2017-09-28 15:32 | NUR ---
SW received a call from pt's RANJITH Ball informing SW that pt. and she is unable to contact pt's sister and leave a voicemail. message. FLORIAN called pt's sister Olivia Jiang and informed her that pt. and offered her condolence. Olivia was requesting detail information as to time of and more detail information that SW did not have. FLORIAN informed Olivia she will have pt'r RANJITH Ball contact her right away. FLORIAN contacted pt's RANJITH Ball and informed her that she did speak with pt's sister Olivia and to contact her since she is available via phone.
--- NOTE | 2017-09-28 15:45 | NUR ---
ICU/RN: Received phone call from pt's sister Olivia Jiang. No arrangements have been made for mortuary, provided hospital number once arrangements are set. Pt with no belongings. Post-mortem care rendered. All lines discontinued.
== END 2017-09-28 13:20 | disposition expired | DRG 853 ==
LOC: ER 07:07 → ICU 09:10
PROVIDERS: ADMIT Nurse Practitioner Acute Care; ATTEND Nurse Practitioner Acute Care
PROC: 5A1955Z Respiratory Ventilation, Greater than 96 Consecutive Hours (ICD-10-PCS; principal; 2017-09-22)
PROC: 5A1223Z Performance of Cardiac Pacing, Continuous (ICD-10-PCS; 2017-09-22)
PROC: 0W9940Z Drainage of Right Pleural Cavity with Drainage Device, Percutaneous Endoscopic Approach (ICD-10-PCS; 2017-09-22)
PROC: 5A2204Z Restoration of Cardiac Rhythm, Single (ICD-10-PCS; 2017-09-22)
PROC: 02HV33Z Insertion of Infusion Device into Superior Vena Cava, Percutaneous Approach (ICD-10-PCS; 2017-09-22)
PROC: B548ZZA Ultrasonography of Superior Vena Cava, Guidance (ICD-10-PCS; 2017-09-22)
PROC: 0BH18EZ Insertion of Endotracheal Airway into Trachea, Via Natural or Artificial Opening Endoscopic (ICD-10-PCS; 2017-09-22)
PROC: 06HM33Z Insertion of Infusion Device into Right Femoral Vein, Percutaneous Approach (ICD-10-PCS; 2017-09-22)
PROC: B54BZZA Ultrasonography of Right Lower Extremity Veins, Guidance (ICD-10-PCS; 2017-09-22)
PROC: 04HK33Z Insertion of Infusion Device into Right Femoral Artery, Percutaneous Approach (ICD-10-PCS; 2017-09-22)
PROC: 05HM33Z Insertion of Infusion Device into Right Internal Jugular Vein, Percutaneous Approach (ICD-10-PCS; 2017-09-22)
PROC: B543ZZA Ultrasonography of Right Jugular Veins, Guidance (ICD-10-PCS; 2017-09-22)
PROC: 0W9930Z Drainage of Right Pleural Cavity with Drainage Device, Percutaneous Approach (ICD-10-PCS; 2017-09-23)
PROC: 0JH606Z Insertion of Pacemaker, Dual Chamber into Chest Subcutaneous Tissue and Fascia, Open Approach (ICD-10-PCS; 2017-09-24)
PROC: 02HK3JZ Insertion of Pacemaker Lead into Right Ventricle, Percutaneous Approach (ICD-10-PCS; 2017-09-24)
PROC: 02583ZZ Destruction of Conduction Mechanism, Percutaneous Approach (ICD-10-PCS; 2017-09-24)
PROC: 06HN33Z Insertion of Infusion Device into Left Femoral Vein, Percutaneous Approach (ICD-10-PCS; 2017-09-24)
PROC: B54CZZA Ultrasonography of Left Lower Extremity Veins, Guidance (ICD-10-PCS; 2017-09-24)
PROC: 5A1D70Z Performance of Urinary Filtration, Intermittent, Less than 6 Hours Per Day (ICD-10-PCS; 2017-09-24)
PROC: 5A1D70Z Performance of Urinary Filtration, Intermittent, Less than 6 Hours Per Day (ICD-10-PCS; 2017-09-25)
DX: A41.9 Sepsis, unspecified organism (principal); I21.4 Non-ST elevation (NSTEMI) myocardial infarction; I49.01 Ventricular fibrillation; E43 Unspecified severe protein-calorie malnutrition; J96.21 Acute and chronic respiratory failure with hypoxia; N17.0 Acute kidney failure with tubular necrosis; G93.1 Anoxic brain damage, not elsewhere classified; L89.310 Pressure ulcer of right buttock, unstageable; T79.7XXA Traumatic subcutaneous emphysema, initial encounter; S27.0XXA Traumatic pneumothorax, initial encounter; R65.21 Severe sepsis with septic shock; I50.21 Acute systolic (congestive) heart failure; J96.22 Acute and chronic respiratory failure with hypercapnia; I44.2 Atrioventricular block, complete; E87.2 Acidosis; M62.82 Rhabdomyolysis; S22.41XA Multiple fractures of ribs, right side, initial encounter for closed fracture; L89.320 Pressure ulcer of left buttock, unstageable; I27.20 Pulmonary hypertension, unspecified; E88.09 Other disorders of plasma-protein metabolism, not elsewhere classified; E87.5 Hyperkalemia; F17.210 Nicotine dependence, cigarettes, uncomplicated; F32.9 Major depressive disorder, single episode, unspecified; I11.0 Hypertensive heart disease with heart failure; I25.2 Old myocardial infarction; K21.9 Gastro-esophageal reflux disease without esophagitis; Z90.81 Acquired absence of spleen; Z87.01 Personal history of pneumonia (recurrent); R73.9 Hyperglycemia, unspecified; Z68.28 Body mass index [BMI] 28.0-28.9, adult; I25.5 Ischemic cardiomyopathy; L98.8 Other specified disorders of the skin and subcutaneous tissue; Z66 Do not resuscitate; M54.9 Dorsalgia, unspecified; E86.1 Hypovolemia; G89.29 Other chronic pain; Z85.840 Personal history of malignant neoplasm of eye; X58.XXXA Exposure to other specified factors, initial encounter; Y93.89 Activity, other specified; Y92.238 Other place in hospital as the place of occurrence of the external cause; J44.9 Chronic obstructive pulmonary disease, unspecified
CPT/HCPCS: 31720; 36415; 36600; 71045-TC; 80048-TC; 80053-TC; 80076-TC; 80202-TC; 81000-TC; 82330; 82550-TC; 82553-TC; 82803-TC; 82962-TC; 83605-TC; 83735-TC; 84100-TC; 84132-TC; 84484-TC; 85025-TC; 85730-TC; 86704; 86705; 86706; 86803; 86850-TC; 87040-TC; 87081-TC; 87086-TC; 87186-TC; 87340; 90935-TC; 92950-TC; 93307-TC; 94002-TC; 94003-TC; 94760-TC; 94762-TC; 94799-TC; 95819-TC; 99082-TC; A4216; A4606; A6402; A6403; A7526; C1750; C1751; C1769; C1894; C9113; J0171; J0461; J0610; J1250; J1610; J1815; J2370; J2543; J3010; J3370; J3490; J7030; J7040; J7050; J7060; Q9967; Z7610